=== PATIENT | male | born 1960 | race Caucasian/White ===

== ENCOUNTER 2024-06-17 15:55 | Inpatient (IN) | payer MEDICARE, BC, SELFPAY ==
[2024-06-17 16:08] VITALS: BP 152/86; PULSE 91; RESP 18; TEMP 37.2; O2SAT 96; BMI 26.8
--- NOTE | 2024-06-17 16:19 | EKG_ITS ---
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
--- NOTE | 2024-06-17 16:19 | XR_ITS ---
Examination: CT abdomen with intravenous contrast CT pelvis with intravenous contrast 2-D coronal reconstructions 2-D sagittal reconstructions Date and time of exam:June 17, 2024 1830 hrs. Indications: Right upper abdominal pain epigastric pain beginning 8 days ago Comparison: May 09, 2013. CTDI: vol (mGy) 8.28 DLP: (mGycm) 506 Technique: Multiple axial sections of the abdomen and pelvis have been obtained. 64 slice high-resolution scanner used. 3 mm axial sections have been obtained, post intravenous injection 60 cc [id number] 2-D sagittal, coronal reconstructions obtained. Low dose protocols were performed. One or more of the following dose reduction techniques were used; automated exposure control, adjustment of the mA and/or KV according to patient size, use of iterative reconstruction technique. Findings: Subsegmental atelectasis in the lower lung zones No focal liver lesion Acute acalculous cholecystitis No splenic pancreatic or adrenal mass No renal or ureteral calculi, no hydronephrosis Appendix not visualized No bowel obstruction Colonic diverticulosis no diverticulitis Contracted urinary bladder Transverse prostate dimension 4.9 cm Impression: Acute acalculous cholecystitis No common bile duct stones noted
--- NOTE | 2024-06-17 16:20 | PD.EDRME ---
Rapid Medical Screening Exam RME Arrival date/time: 06/17/24 15:55 64-year-old male presents emergency department complaint of abdominal pain ongoing since March intermittently. Patient has been seen by Dr. Vuong GI specialist as well as Dr. Shafer Chief Complaint: Flu Like Symptoms Time Seen by Provider: 06/17/24 16:03 Vital signs: Vital Signs Temperature 98.9 F 06/17/24 16:08 Pulse Rate 91 06/17/24 16:08 Respiratory Rate 18 06/17/24 16:08 Blood Pressure 152/86 H 06/17/24 16:08 Pulse Oximetry (%) 96 06/17/24 16:08 Oxygen Delivery Method Room Air 06/17/24 16:08
[2024-06-17 16:51] LABS: Basophils % (Auto) 0 % (0-2.5); Eosinophils % (Auto) 0 % (0-10); Hematocrit 40.1 % (41.0-53.0); Hemoglobin 14.2 g/dL (13.5-16.0); Immature Granulocytes % (Auto) 1 % (0-0); Immature Granulocytes Auto 0.07 Thou/mm3 (0.00-0.00); Lymphocytes # (Auto) 0.4 Thou/mm3 (1.0-4.8); Lymphocytes % (Auto) 3 % (10-50); Mean Corpuscular HGB Conc 35.4 g/dl (31.0-37.0); Mean Corpuscular Hemoglobin 31.5 pg (25.0-35.0); Mean Corpuscular Volume 89 fL (80-100); Monocytes # (Auto) 1.5 Thou/mm3 (0.0-0.8); Monocytes % (Auto) 11 % (0-12); Neutrophils # (Auto) 11.8 Thou/mm3 (1.8-7.7); Neutrophils % (Auto) 86 % (37-80); Nucleated Red Blood Cell % 0 /100 WBC (0); Platelet Count 168 Thou/mm3 (140-440); Red Blood Count 4.51 Miln/mm3 (4.50-5.90); White Blood Count 13.7 Thou/mm3 (3.8-10.6)
[2024-06-17 16:54] LABS: Collection Type, Urine Clean Catch
[2024-06-17 17:03] LABS: Amorphous Crystals,Urine Present (Absent); Bilirubin,Urine 2+ (Negative); Blood,Urine Trace (Negative); Color,Urine Drk-Yellow (Lt Yel-Yel); Culture Indicated,Urine Not Indicated; Glucose, Urine Negative (Negative); Ketones,Urine Negative (Negative); Leukocyte Esterase,Urine Negative (Negative); Nitrite,Urine Negative (Negative); PH,Urine 6.5 (5.0-7.0); Protein,Urine 1+ (Neg - Trace); RBC,Urine 2 /hpf (0-3); Specific Gravity,Urine 1.014 (1.001-1.035); Squamous Epithelial Cell,Urine < 1 /hpf (0-5); WBC,Urine 3 /hpf (0-5)
[2024-06-17 17:12] LABS: Alanine Aminotransferase 59 U/L (10-49); Albumin, Serum 4.5 gm/dL (3.4-4.8); Albumin/Globulin Ratio 1.7 (1.2-2.2); Alkaline Phosphatase 280 U/L (46-116); Anion Gap 10 (7-16); Aspartate Amino Transferase 46 U/L (0-34); BUN/Creatinine Ratio 8 Ratio (12-20); Bilirubin,Total 5.7 mg/dL (0.3-1.2); Blood Urea Nitrogen 8 mg/dL (9-23); Calcium 9.9 mg/dL (8.3-10.6); Calcium (Corrected) 9.9 mg/dL (8.5-10.1); Carbon Dioxide 27.4 mMol/L (20.0-31.0); Chloride 92 mMol/L (98-107); Estimated Creatinine Clearance 70.3 mL/min (>60); Globulin 2.7 gm/dL (2.3-3.5); Glucose 121 mg/dL (74-106); Lipase 27 U/L (12-53); Osmolality,Calculated 258 (275-295); Sodium 129 mMol/L (136-145); Total Protein 7.2 gm/dL (5.7-8.2); Troponin I < 0.020 ng/mL (0.0-0.045); eGFR > 60 See Note
[2024-06-17 17:17] LABS: Clarity,Urine Hazy (Clear/Hazy)
--- NOTE | 2024-06-17 17:25 | XR_ITS ---
Examination: Abdomen sonogram, Limited Date and time of exam: June 17, 2024 at 1809 hrs. Indications: Abdominal pain beginning 6 days ago Technique: Real-time ryan scale transabdominal sonographic images of the upper abdomen obtained. Findings: Gallbladder sludge No gallstones Gallbladder wall is thickened up to 0.48 cm with edema Common bile duct 0.3 cm Pancreatic head 2.1 cm Liver 16 cm fatty infiltration lobular contour no focal liver lesions Normal hepatopedal portal venous flow Patent IVC Impression: Acute calculus cholecystitis, consider HIDA scan or MRCP follow-up
[2024-06-17 17:54] VITALS: BP 155/92; PULSE 92; RESP 16; TEMP 36.9; O2SAT 96
--- NOTE | 2024-06-17 17:57 | PD.EDADULT ---
ED General RME/HPI General Chief complaint: Flu Like Symptoms Stated complaint: NIGHT SWEATS, CHILLS, FEVER Time Seen by Provider: 06/17/24 16:03 Arrival date/time: 06/17/24 15:55 CC: Epigastric right upper quadrant abdominal pain with progressive increase in severity over the past 8 days, now also with a headache for the past 4 days, patient states currently the pain is a 9 on a 10 scale in the epigastrium and right upper quadrant. Abdomen is mildly distended as baseline. Patient denies nausea or vomiting or diarrhea. Patient has a history of esophageal stricture which was dilated by Dr. Vuong. Patient is awake alert oriented in mild discomfort but not in any acute distress. RME / HPI RME / HPI narrative: 06/17/24 15:55 64-year-old male presents emergency department complaint of abdominal pain ongoing since March intermittently. Patient has been seen by Dr. Vuong GI specialist as well as Dr. Shafer Related Data Home Medications ?Medication ?Instructions ?Recorded ?Confirmed ezetimibe 10 mg tablet 10 mg PO QDAY 05/16/24 06/18/24 montelukast 10 mg tablet 10 mg PO QDAY 05/16/24 06/18/24 pantoprazole 40 mg tablet,delayed 40 mg PO QDAY 05/16/24 06/18/24 release Allergies Allergy/AdvReac Type Severity Reaction Status Date / Time Heparin Analogues Allergy Severe Anaphylaxis Verified 05/19/24 09:05 simvastatin Allergy Severe DEPRESSION Verified 05/19/24 09:05 Sulfa (Sulfonamide Allergy Severe Hives Verified 05/19/24 09:05 Antibiotics) clindamycin Allergy Mild Rash Verified 05/19/24 09:05 tamsulosin Allergy Mild Abdominal Verified 05/19/24 09:05 Pain Review of Systems Review of Systems Narrative Review of Systems: GEN: No fever, no chills, no weight loss EYES: No discharge, no visual changes, no pain HEENT: No ear pain, no congestion, no sore throat PULM: No shortness of breath, no cough, no congestion CV: No chest pain, no dyspnea on exertion, no palpitations GI: + nausea, no vomiting, no diarrhea, + pain, no constipation : No frequency, no urgency, no dysuria MUSC/SKEL: No joint pain, no back pain SKIN: No rash PSYCH: No hallucinations, no depression HEME/LYMPH: No easy bleeding or bruising tendencies NEURO: No weakness, no headache Past Medical History Past Medical History NEUROLOGIC: Negative Neurological Disorders or Seizures CARDIAC: Positive Hypercholesterolemia; Negative Cardiac Disorders or Congestive Heart Failure RESPIRATORY: Negative Chronic Obstructive Pulmonary Disease (COPD) or Asthma GASTROINTESTINAL: Positive Gastrointestinal Disorders (dyphagia, EOE), Ulcer and Gastroesophageal Reflux Disease GENITOURINARY: Positive Genitourinary Disorders and Benign Prostatic Hyperplasia; Negative Renal Disease MUSCULOSKELETAL: Positive Musculoskeletal Disorders, Arthritis and Osteoporosis ENT: Positive Deafness (wears hearing aids) ENDOCRINE: Negative Endocrine Disorders, Diabetes Mellitus Type 1 or Diabetes Mellitus Type 2 HEMATOLOGIC: Negative Blood Disorders or Sickle Cell Disease OTHER HISTORY: Positive Chicken Pox, Measles and Mumps; Negative Autoimmune Disease, Falls, Blood Transfusions, Anesthesia Reactions or Cancer Family History FAMILY HISTORY: Positive Family Cardiac Disorders (mother-high cholesterol, HTN) and Family Cancer (father-lung CA); Negative Family Psychiatric Problems, Family Respiratory Disorders, Family Gastrointestinal Problems, Family Surgery or Family Anesthesia Reaction Surgical History SURGICAL: Positive Oral Surgery, Bowel Surgery (hemorrhoidectomy) and Transurethral Resection Social History SMOKING STATUS: Never smoker ED Exam Narrative Physical exam: [General: In mild discomfort but not in any acute distress Head normocephalic HEENT: Within acceptable limits Neck is supple nontender Chest equal chest rise nontender to palpation Respiratory: Clear to auscultation no wheezes crackles or rubs CV: Rate rhythm is regular no murmurs rubs or clicks Abdomen is distended secondary to body habitus, epigastric and right upper quadrant tenderness with minimal palpation, no lower quadrant or left upper quadrant pain. Reflexive guarding but no rebound tenderness. Back: No CVA tenderness no spinous process tenderness from cervical spine thoracic and lumbar spine Skin: Intact no petechiae rash induration ulceration or crepitus Extremities: Moving all extremity against resistance cap refill less than 2 seconds neurosensory intact Neuro: Awake alert oriented x3 Glascow coma 15 no focal deficits] Course Quality Measures none Orders Category Date Time Status Admit to Inpatient Status Routine Admission 06/18/24 10:54 Active Patient Condition Routine Admission 06/18/24 10:54 Ordered Bedside COVID-19 Antigen Test NOW Care 06/17/24 16:[address] Screening NOW Care 06/17/24 16:20 Active EKG (ED ONLY) *Do not use* NOW Care 06/17/24 16:19 Completed Insert IV NOW Care 06/17/24 16:19 Active MRI Screening NOW Care 06/17/24 19:21 Active NPO NOW Care 06/17/24 18:01 Active Notify provider NEEDED Care 06/18/24 10:54 Active Consult to Gastroenterology Stat Cons 06/18/24 09:43 Ordered Consult to General Surgery Stat Cons 06/18/24 09:43 Ordered Diet NPO (NOW) Diet 06/17/24 18:[address] abdomen pelvis w con Stat Exams 06/17/24 16:19 Completed EKG (ED Only) Stat Exams 06/17/24 16:19 Draft MR MRCP Stat Exams 06/18/24 Completed US gall bladder Stat Exams 06/17/24 17:25 Completed Blood Culture (Lab) Stat Lab 06/18/24 11:01 Ordered CBC AM DRAW Lab 06/19/24 05:00 Ordered CBC AM DRAW Lab 06/20/24 05:00 Ordered CBC AM DRAW Lab 06/21/24 05:00 Ordered CBC Stat Lab 06/17/24 16:33 Completed Comprehensive Metabolic Panel AM DRAW Lab 06/19/24 05:00 Ordered Comprehensive Metabolic Panel AM DRAW Lab 06/20/24 05:00 Ordered Comprehensive Metabolic Panel AM DRAW Lab 06/21/24 05:00 Ordered Comprehensive Metabolic Panel Stat Lab 06/17/24 16:33 Completed Lipase Stat Lab 06/17/24 16:33 Completed Lipid Panel Stat Lab 06/17/24 16:33 Completed Magnesium AM DRAW Lab 06/19/24 05:00 Ordered Magnesium AM DRAW Lab 06/20/24 05:00 Ordered Magnesium AM DRAW Lab 06/21/24 05:00 Ordered Troponin I Stat Lab 06/17/24 16:33 Completed UA, C/S IF [Urinalysis, C/S if Indicated] Stat Lab 06/17/24 16:47 Completed Acetaminophen Tab [Tylenol ES Tab] Med 06/18/24 00:20 Discontinued 1,000 mg PO X1 ONE Morphine Inj Med 06/18/24 10:00 Discontinued 4 mg IV X1 ONE Morphine Inj Med 06/17/24 18:15 Discontinued 4 mg IVP X1 ONE Morphine Inj Med 06/18/24 00:30 Discontinued 4 mg IVP X1 ONE Ondansetron Inj [Zofran Inj] Med 06/18/24 10:54 Active 4 mg IV Q6H PRN Ondansetron Inj [Zofran Inj] Med 06/17/24 17:54 Discontinued 4 mg IV X1 ONE Ondansetron Inj [Zofran Inj] Med 06/18/24 09:43 Discontinued 4 mg IV X1 ONE Piper/Tazo 3.375 gm [Zosyn] Med 06/18/24 09:43 Discontinued 3.375 gm in 50 ml IV X1 Piper/Tazo Inj [Zosyn Inj] 3.375 gm Med 06/17/24 19:13 Discontinued Sodium Chloride 0.9% (P) [Ns 0.9% (P)] 50 ml IV X1 Sodium Chloride 0.9% 1000 ml [Ns] 1,000 ml Med 06/17/24 19:21 Active IV 100 mls/hr Sodium Chloride 0.9% 1000 ml [Ns] 1,000 ml Med 06/17/24 17:54 Discontinued IV 999 mls/hr Sodium Chloride 0.9% 1000 ml [Ns] 1,000 ml Med 06/18/24 09:44 Discontinued IV 999 mls/hr cefTRIAXone/D5w 1gm IV premix [Rocephin/D5w 1gm IV Med 06/18/24 10:56 Active premix] 50 ml IV QDAY Code Status Routine Oth 06/18/24 10:54 Ordered Vital Signs Vital signs: Vital Signs Temperature 98.9 F 06/17/24 16:08 Pulse Rate 91 06/17/24 16:08 Respiratory Rate 18 06/17/24 16:08 Blood Pressure 152/86 H 06/17/24 16:08 Pulse Oximetry (%) 96 06/17/24 16:08 Oxygen Delivery Method Room Air 06/17/24 16:08 [facility] Patient data External records reviewed:: [facility] previous records Clinical information provided by:: patient Social determinants that could affect healthcare access:: none Patient has the following chronic illnesses:: None How is presenting disease/condition affected by chronic disease/condition?: uneffected by Evaluation data The following diagnostics were reviewed and interpreted by me:: lab results and radiology exam(s) Lab and/or radiology exams considered but not ordered:: CBC shows leukocytosis of 13.7 no anemia thrombocytopenia CMP is shows the patient is hyponatremia at 129 potassium at 4.0 chloride of 92 CO2 of 27.4 BUN of 8 creatinine of 1.0 glucose of 121 T. bili of 5.7 AST of 46 ALT of 59 alk phos of 280 lipase of 27 Troponin is less than 0.020. Interpretation Summary: Patient's case clinical findings and laboratory findings and imaging discussed with Dr. Vuong wants the patient held in the ER [facility], for MRCP in the morning and then he will try and contact her Dr. Shafer regarding an ERCP in the morning. Medications Medications considered but not ordered:: None Medication administrations:: Medication Administration History Sodium Chloride (Ns) 1,000 mls @ 100 mls/hr IV .Q10H PROSPER Stop: 07/17/24 19:20 Last Infusion: 06/18/24 06:11 Dose: Infused Documented By: Admin: 06/17/24 19:33 Dose: 100 mls/hr Documented By: EE Ceftriaxone Sodium/Dextrose (Rocephin/D5w 1gm Iv Premix) 50 mls @ 100 mls/hr IV QDAY [facility] Stop: 06/25/24 10:55 Ondansetron HCl (Ondansetron Inj 2 Mg/Ml Inj 2 Ml) 4 mg IV Q6H PRN; Protocol PRN Reason: NAUSEA OR VOMITING Stop: 07/18/24 10:53 Discontinued Medications Acetaminophen (Acetaminophen 500 Mg Tablet) 1,000 mg PO X1 ONE Stop: 06/18/24 00:21 Last Admin: 06/18/24 00:25 Dose: 1,000 mg Documented By: CVL Sodium Chloride (Ns) 1,000 mls @ 999 mls/hr IV .Q1H1M ONE Stop: 06/17/24 18:54 Last Infusion: 06/17/24 20:01 Dose: Infused Documented By: Admin: 06/17/24 18:28 Dose: 999 mls/hr Documented By: EF Piperacillin Sod/Tazobactam (Sod 3.375 gm/ Sodium Chloride) 50 mls @ 100 mls/hr IV X1 ONE Stop: 06/17/24 19:42 Last Infusion: 06/17/24 20:02 Dose: Infused Documented By: Admin: 06/17/24 19:32 Dose: 100 mls/hr Documented By: EE Piperacillin/Tazobactam/Dextrose (Zosyn) 3.375 gm in 50 mls @ 100 mls/hr IV X1 ONE Stop: 12/04/24 10:12 Last Admin: 06/18/24 10:03 Dose: 100 mls/hr Documented By: AA Sodium Chloride (Ns) 1,000 mls @ 999 mls/hr IV .Q1H1M ONE Stop: 06/18/24 10:44 Last Admin: 06/18/24 10:03 Dose: 999 mls/hr Documented By: AA Morphine Sulfate (Morphine Sulf Inj 10 Mg/Ml Vial) 4 mg IVP X1 ONE Stop: 06/17/24 18:16 Last Admin: 06/17/24 18:28 Dose: 4 mg Documented By: EF Morphine Sulfate (Morphine Sulf Inj 10 Mg/Ml Vial) 4 mg IVP X1 ONE Stop: 06/18/24 00:31 Last Admin: 06/18/24 01:35 Dose: 4 mg Documented By: CVL Morphine Sulfate (Morphine Sulf Inj 10 Mg/Ml Vial) 4 mg IV X1 ONE Stop: 06/18/24 10:01 Last Admin: 06/18/24 10:00 Dose: 4 mg Documented By: CM Ondansetron HCl (Ondansetron Inj 2 Mg/Ml Inj 2 Ml) 4 mg IV X1 ONE; Protocol Stop: 06/17/24 17:55 Last Admin: 06/17/24 18:29 Dose: 4 mg Documented By: EF Ondansetron HCl (Ondansetron Inj 2 Mg/Ml Inj 2 Ml) 4 mg IV X1 ONE; Protocol Stop: 06/18/24 09:44 Last Admin: 06/18/24 09:58 Dose: 4 mg Documented By: CM None Consultations Consultation(s) initiated? (list below): Yes Diagnosis Differential Diagnosis ED Complaint MDM: Cholelithiasis choledocholithiasis ascending cholangitis Most likely diagnosis given after review of the tests above:: Cholelithiasis Admission Indicated Admission indicated?: indicated Explain why admission is indicated or not indicated:: Further medical management Admission Request Was there a request for admission?: No Disposition Plan Disposition Plan: Admit Medical Decision Making Differential Diagnosis Differential Diagnosis: Cholelithiasis choledocholithiasis ascending cholangitis Lab Data 06/17/24 16:33 06/17/24 16:33 Labs: Lab Results 06/17/24 06/17/24 Range/Units 16:33 16:47 WBC 13.7 H (3.8-10.6) Thou/mm3 RBC 4.51 (4.50-5.90) Miln/mm3 Hgb 14.2 (13.5-16.0) g/dL Hct 40.1 L (41.0-53.0) % MCV 89 (80-100) fL MCH 31.5 (25.0-35.0) pg MCHC 35.4 (31.0-37.0) g/dl RDW Std Deviation 38.0 (35.1-43.9) fL Plt Count 168 (140-440) Thou/mm3 Neut % (Auto) 86 H (37-80) % Lymph % (Auto) 3 L (10-50) % Duchesne % (Auto) 11 (0-12) % Eos % (Auto) 0 (0-10) % Baso % (Auto) 0 (0-2.5) % Neut # (Auto) 11.8 H (1.8-7.7) Thou/mm3 Lymph # (Auto) 0.4 L (1.0-4.8) Thou/mm3 Duchesne # (Auto) 1.5 H (0.0-0.8) Thou/mm3 Eos # (Auto) 0.0 (0.0-0.5) Thou/mm3 Baso # (Auto) 0.0 (0.0-0.2) Thou/mm3 Immature Gran # (Auto) 0.07 H (0.00-0.00) Thou/mm3 Absolute Nucleated RBC 0.00 (0.00-0.00) Thou/mm3 Immature Gran % 1 H (0-0) % Nucleated RBC % 0 (0) /100 WBC Sodium 129 L (136-145) mMol/L Potassium 4.0 (3.4-5.1) mMol/L Chloride 92 L (98-107) mMol/L Carbon Dioxide 27.4 (20.0-31.0) mMol/L Anion Gap 10 (7-16) BUN 8 L (9-23) mg/dL Creatinine 1.0 (0.6-1.3) mg/dL Estim Creat Clear Calc 70.3 (>60) mL/min eGFR > 60 (60 - ) See Note BUN/Creatinine Ratio 8 L (12-20) Ratio Glucose 121 H (74-106) mg/dL Calculated Osmolality 258 L (275-295) Calcium 9.9 (8.3-10.6) mg/dL Corrected Calcium 9.9 (8.5-10.1) mg/dL Total Bilirubin 5.7 H (0.3-1.2) mg/dL AST 46 H (0-34) U/L ALT 59 H (10-49) U/L Alkaline Phosphatase 280 H (46-116) U/L Troponin I < 0.020 (0.0-0.045) ng/mL Total Protein 7.2 (5.7-8.2) gm/dL Albumin 4.5 (3.4-4.8) gm/dL Globulin 2.7 (2.3-3.5) gm/dL Albumin/Globulin Ratio 1.7 (1.2-2.2) Triglycerides 96 (30-150) mg/dL Cholesterol 118 L (132-200) mg/dL LDL Cholesterol, Calc 73 (0-130) mg/dL HDL Cholesterol 26 L (40-60) mg/dL Cholesterol/HDL Ratio 4.5 (4.0-6.7) RATIO Lipase 27 (12-53) U/L Ur Collection Type Clean Catch Urine Color Drk-Yellow A (Lt Yel-Yel) Urine Clarity Hazy (Clear/Hazy) Urine pH 6.5 (5.0-7.0) Ur Specific Baker 1.014 (1.001-1.035) Urine Protein 1+ A (Neg - Trace) Urine Glucose (UA) Negative (Negative) Urine Ketones Negative (Negative) Urine Blood Trace (Negative) Urine Nitrite Negative (Negative) Urine Bilirubin 2+ A (Negative) Urine Urobilinogen (Auto) 3.0 (0.0-1.0) mg/dL Ur Leukocyte Esterase Negative (Negative) Urine RBC 2 (0-3) /hpf Urine WBC 3 (0-5) /hpf Ur Squamous Epith Cells < 1 (0-5) /hpf Amorphous Crystals Present A (Absent) Urine Bacteria None (None) Ur Culture Indicated? Not Indicated Discharge Plan Plan Patient Disposition: Other Care w/in Hosp ([facility]) Patient condition on transfer: Stable Prescriptions/Referrals Prescriptions/Med Rec: No Action pantoprazole 40 mg tablet,delayed release (DR/EC) 40 mg PO QDAY Patient Comments: TAKE 1 TABLET BY MOUTH EVERY DAY montelukast 10 mg tablet 10 mg PO QDAY Patient Comments: TAKE 1 TABLET BY MOUTH EVERY DAY IN THE EVENING ezetimibe 10 mg tablet 10 mg PO QDAY Patient Comments: TAKE 1 TABLET BY MOUTH EVERY DAY FOR 90 DAYS Referrals: Martina Shaver MD [Primary Care Provider] - In 1 week Problem List Clinical Impression: Acute cholecystitis Patient/Caregiver Discharge Instructions Education Materials: ED Cholecystitis, Confirmed Print Language: Czech Stand Alone Forms: Rubia Award Info., Patient Portal Info Letter PA/[employer] SUPERVISOR Supervising Physician PA/[employer] SUPERVISOR Supervising Physician: Bayron Arora ENP
[2024-06-17 18:16] LABS: Cardiac Risk Estimate 4.5 RATIO (4.0-6.7); Cholesterol 118 mg/dL (132-200); HDL Cholesterol 26 mg/dL (40-60); LDL Cholesterol,Calculated 73 mg/dL (0-130); Triglycerides 96 mg/dL (30-150)
[2024-06-17] MEDS: SODIUM CHLORIDE 0.9% 1000 ML 1,000 ML 999 ML IV (18:28)
[2024-06-17] MEDS: MORPHINE SULF INJ 10 MG/ML VIAL 4 MG IVP (18:28)
[2024-06-17] MEDS: ONDANSETRON INJ 2 MG/ML INJ 2 ML 4 MG IV (18:29)
--- NOTE | 2024-06-17 18:43 | PC.NURSE ---
patient gone to ct via wheelchair with child care director.
[2024-06-17 19:07] VITALS: BP 143/82; PULSE 93; RESP 18; O2SAT 95
[2024-06-17] MEDS: PIPER/TAZO INJ 3.375 GM in SODIUM CHLORIDE 0.9% (P) 50 ML IV (19:32)
[2024-06-17] MEDS: SODIUM CHLORIDE 0.9% 1000 ML 1,000 ML 100 ML IV (19:33)
[2024-06-17 21:23] VITALS: BP 125/70; PULSE 96; RESP 18; TEMP 36.8; O2SAT 95
[2024-06-17 23:33] VITALS: BP 137/79; PULSE 95; RESP 16; TEMP 38.1; O2SAT 96
[2024-06-18] VITALS (10 sets, daily range): BP systolic 127–150; BP diastolic 75–99; PULSE 80–102; RESP 18–19; TEMP 36.3–38.2; O2SAT 94–97; BMI 26.8
--- NOTE | 2024-06-18 | XR_ITS ---
MRI abdomen, without contrast. MRCP Date and time of exam: June 18, 2024 0640 hrs. Indications: Epigastric pain right upper abdominal pain increasing in severity over the last 8 days Technique: Multiple axial and coronal images of the abdomen have been obtained with the Siemens 1.5T MRI scanner. Images obtained included T1 weighted transverse images, T2-weighted transverse images, T2-weighted transverse images fat-suppressed, T2 weighted haste fat suppressed transverse images, T1 weighted images, in and out of phase images, T2-weighted coronal images, breath hold, T2 weighted haze coronal images as well as T2 weighted coronal thick slab images, MRCP. Findings: No focal liver lesions Gallbladder wall thickening and edema Common bile duct 4 mm no stones No pancreatic edema or pancreatic mass Minimal free fluid in the abdomen No hydronephrosis Aorta normal size Impression: Acute acalculous cholecystitis No common hepatic or common bile duct stones
[2024-06-18] MEDS: ACETAMINOPHEN 500 MG TABLET 1000 MG PO (00:25)
[2024-06-18] MEDS: MORPHINE SULF INJ 10 MG/ML VIAL 4 MG IVP (01:35)
--- NOTE | 2024-06-18 02:18 | PD.EDADDENDU ---
Emergency Room Addendum Addendum Narrative: 2300: Care assumed from Bayron Arora NP. Past medical, surgical, social and family history reviewed. Vitals and home medications reviewed. Results and treatment plan discussed. I will assume the care of the patient at this time and will follow the patient, pending MRCP in the AM. Please refer to the emergency department record for history and examination from initial visit. OBSERVATION NOTE: The patient was placed in ED observation care at 06/17/24 at 2300. The patient was placed in ED observation care because of pending MRCP in the AM. The patients past medical history, social history, and family history were reviewed. The plan of care will include serial examinations. Patient has remained stable here in the ED without any complications. 0600: Care signed out to the next oncoming provider. Past medical, surgical, social and family history reviewed. Vitals and home medications reviewed. Results and treatment plan discussed. They will assume the care of the patient at this time and will follow the patient, pending MRCP.
--- NOTE | 2024-06-18 07:34 | PD.EDADDENDU ---
Emergency Room Addendum Addendum Narrative: 0600: Care assumed from Dr. Kaiser, the previous shift emergency physician. Past medical, surgical, social and family history reviewed. Vitals and home medications reviewed. I will assume the care of the patient at this time, pending MRCP. Please refer to the emergency department record for history and examination from initial visit.? Nursing notes reviewed by me. Vital signs reviewed by me. [facility] medical records reviewed by me. 0936: I spoke with GI Dr. Vuong. Discussed patients PMHx, HPI, ED course, exam findings, labs, and radiology results. 0937: I spoke with surgeon Dr. Sparrow. Discussed patients PMHx, HPI, ED course, exam findings, labs, and radiology results. He agrees to consult. 1000: I spoke with resident Dr. Waldrop working with Dr. Mackay. Discussed patients PMHx, HPI, ED course, exam findings, labs, and radiology results. The hospitalist agree to accept the patient for admission. RADIOLOGY Ordering Physician: Bayron Arora NP Date of Service: 06/18/24 Procedure(s): MR MRCP Accession Number(s): [id number] cc: Bayron Arora NP; Tereso Mckeon MD; Martina Fiore MD~ MRI abdomen, without contrast. MRCP Date and time of exam: June 18, 2024 0640 hrs. Indications: Epigastric pain right upper abdominal pain increasing in severity over the last 8 days Technique: Multiple axial and coronal images of the abdomen have been obtained with the Siemens 1.5T MRI scanner. Images obtained included T1 weighted transverse images, T2-weighted transverse images, T2-weighted transverse images fat-suppressed, T2 weighted haste fat suppressed transverse images, T1 weighted images, in and out of phase images, T2-weighted coronal images, breath hold, T2 weighted haze coronal images as well as T2 weighted coronal thick slab images, MRCP. Findings: No focal liver lesions Gallbladder wall thickening and edema Common bile duct 4 mm no stones No pancreatic edema or pancreatic mass Minimal free fluid in the abdomen No hydronephrosis Aorta normal size Impression: Acute acalculous cholecystitis No common hepatic or common bile duct stones Dictated By:Tereso Mckeon MD Signed By:<Electronically signed by Tereso Mckeon MD in [place]>06/18/24 0752
[2024-06-18] MEDS: ONDANSETRON INJ 2 MG/ML INJ 2 ML 4 MG IV (09:58)
[2024-06-18] MEDS: MORPHINE SULF INJ 10 MG/ML VIAL 4 MG IV (10:00)
[2024-06-18] MEDS: SODIUM CHLORIDE 0.9% 1000 ML 1,000 ML 999 ML IV (10:03)
[2024-06-18] MEDS: PIPER/TAZO 3.375 GM 3.375 GM/50 ML BAG IV (10:03)
[2024-06-18] MEDS: cefTRIAXone/D5w 1gm IV premix 50 ML IV (11:17)
--- NOTE | 2024-06-18 13:45 | ESHP_ITS ---
<Statement entered by Cristopher Waldrop MD - 06/18/24 17:15> This is a 64-year-old male with past medical history of eosinophilic esophagitis and hyperlipidemia. Patient follows up with PCP and soap inspector and soap inspector as outpatient. Patient presented with epigastric pain radiating to upper abdomen constant and worse with eating. He described his pain as stabbing. Pain minimally improved with oxycodone at home. He also had associated yellowish discoloration of eyes. Also endorsed generalized pruritus. Patient was admitted at [facility] in March and cardiac workup was performed by soap inspector which came out to be negative. Patient is admitted for acute acalculous cholecystitis workup and general surgery has been consulted and plans to perform surgery. GI specialist Dr. Vuong has been also consulted for further recommendations. Currently patient is n.p.o., blood cultures were ordered and IV antibiotic therapy was initiated. Pain control will be given as needed. Patient is allergic to heparin therefore SCDs were given for DVT prophylaxis. Hep panel was ordered for elevated transaminases although most likely attributed to use of ezetemibe as well as acalculous cholecystitis. MRCP did not reveal any CBD stones. Patient family is agreeable to the plan. All labs and orders were reviewed. I saw and examined the patient, and I agree with current management stated by Dr Julien MD,[id number]. Plan of care was discussed with the attending physician and resident physician. Disclaimer: Despite multiple revisions, due to the dictation software being used, the document bellow may not be free of grammatical errors including phonetic/typographic errors. However, this does not deter from our commitment to providing health care in the patient's best interest in mind. Dr. Tee MD, PGY 2 Documentation for date of: 06/18/24 HPI History of Present Illness Chief complaint: Epigastric pain and Jaundice History of present illness: HPI: Patient is a 64-year-old male with a past medical history significant for eosinophilic esophagitis and hyperlipidemia. Patient follows up with PCP Dr. Martina Shaver, soap inspector Dr. Ramos and wood window and door craftsman Dr. Vuong. Patient presented to the ED today with a chief complaint of epigastric pain. Patient reported epigastric pain as 10/10, radiating throughout the upper abdomen, constant, worse postprandial and described as stabbing/burning. Patient reports minimal improvement after taking oxycodone at home. He also had associated yellowing of his eyes over the past few days as well as dark-colored urine for the past week. He also endorses generalized pruritus for the same time as well. Also for the past 4 days he has had decreased appetite, however no noticeable weight loss. Patient also states that he developed a nonproductive cough since yesterday. Patient denies any nausea/vomiting, diarrhea, constipation, fever, chills or sick contacts. Also denies any SOB, chest pain/pressure, palpitations, orthopnea, PND or lower extremity swollen. Of note patient had a previous admission to [facility] in March for a similar complaint of chest pain/epigastric pain. Patient had a complete cardiac workup including echocardiogram and stress test which were reported as normal by the patient. He subsequently followed up with soap inspector Dr. Ramos who also did a nuclear stress test which was reported as normal by patient. On April 18 patient underwent upper GI endoscopy, by Dr. Vuong which revealed esophageal strictures/stenosis and was dilated. Since patient's abdominal pain began to worsen and he called Dr. Vuong who sent him for some blood tests which showed his bilirubin was elevated. Today he had worsening of his abdominal pain and again contacted Dr. Vuong who advised he present to the ED. ED course : BP 152/86, pulse 81, RR 18, temp 98.9 F, 96% on room air. Labs were significant for NA 129, OSM 258, Hb 14.2, WBC 13.7, PLT 168, T.bili 5.7, ALP 280, AST 46, ALT 59, cholesterol 118, troponin was negative. EKG showed sinus rhythm, rate 92, no acute ST elevation or depression. Patient was treated with 2L IVF NS bolus, morphine 4 Mg IV x 1, ondansetron 4 Mg IV x 1 and Zosyn 3.375 g x 2. Patient will be admitted for management of acalculous cholecystitis. GI and general surgery were both consulted. Medication list: ?Ezetimibe 10 Mg p.o. daily ? Montelukast 10 Mg p.o. daily ? Pantoprazole 40 Mg p.o. daily Review of Systems Review of Systems Narrative Review of Systems: GENERAL: Denies fever/chills or diaphoresis. HEENT: Denies headaches or visual changes. Denies discharge. Neuro: Denies unusual weakness or difficulty speaking. CARDIO: As above PULM: As abovr GI: As above. URO: Denies buring/itching/pain/urinary changes. MEDICAL LAB TECH INSTRUCTOR: Denies menstrual changes, hot flashes. MSK/EXT/SKIN: Denies joint/skeletal/muschle pain, issues/changes in upper or lower extremities, itchiness, or superficial pain. PSYCH: Cooperative, pleasant mood & affect. The rest of the review of systems is otherwise negative. Past Medical History Past Medical History Comments PMH COMMENT: Past medical history: ?Eosinophilic esophagitis ? Hyperlipidemia ? Acalculous cholecystitis ? BPH ? Appendicitis Past surgical history: 1995?right inguinal hernia repair [[facility]] 1999?left shoulder rotator cuff repair [[facility]] 2008?screening colonoscopy and EGD with esophageal dilatation [[facility] by Dr. Ramirez] 2009, 2010/2011/2015/2016?EGD with esophageal dilatation 2011?greenlight laser therapy/photo selective vaporization of the prostate 2012?laparoscopic appendectomy 2013?right shoulder rotator cuff repair and arthroscopy [[place]] 2019?TURP [[place]] 2020?colonoscopy and EGD with dilation [Dr. Vuong] 2021?hemorrhoidectomy [[place]] 2023?left trigger thumb release Allergies: ?Heparin?/anaphylaxis ? Simvastatin?impression ? Sulfa?hives ? Clindamycin?rash ? Tamsulosin?abdominal pain ? 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 Never smoked ETHO use: Socially Illicit drug use: Denies Social History Note: Patient states he exercises 3 times a week and runs approximately 1-5 miles M/W/F. On alternate weeks he does weight training Family History: Mom?familial hyperlipidemia Exam Vital Signs Temp Pulse Resp BP Pulse Ox O2 Del Method 98.7 F 86 19 134/95 H 94 L Room Air 06/18/24 11:46 06/18/24 11:46 06/18/24 11:46 06/18/24 11:46 06/18/24 11:46 06/18/24 11:46 Narrative Exam Constitutional Alert, oriented x 3 and comfortable. Elderly male, Icteric HEENT Vision grossly intact. Patent nares. Trachea midline Respiratory Chest normal on inspection and clear auscultation bilaterally Cardiovascular S1 and S2 audible, RRR. No murmurs, carotid bruit, occasional skipped beats. JVD not assessed Abdominal Distended and tender to palpation right upper quadrant and epigastrium. BS + Genitourinary No bladder tenderness, no flank pain. Normal to palpation Musculoskeletal Extremities tone within normal limits. Trace LE edema. Neurological CN II - XII grossly intact. Extremity motor and sensation grossly intact. Skin Warm, dry and intact. No apparent lesions. Psychiatric Patient has good affect, is cooperative Results: Labs 06/17/24 16:33 06/17/24 16:33 Labs: Short CBC 06/17/24 Range/Units 16:33 WBC 13.7 H (3.8-10.6) Thou/mm3 Hgb 14.2 (13.5-16.0) g/dL Hct 40.1 L (41.0-53.0) % Plt Count 168 (140-440) Thou/mm3 BMP 06/17/24 16:33 Sodium 129 L Potassium 4.0 Chloride 92 L Carbon Dioxide 27.4 BUN 8 L Creatinine 1.0 Glucose 121 H Calcium 9.9 Cardiac Enzymes 06/17/24 Range/Units 16:33 Troponin I < 0.020 (0.0-0.045) ng/mL Liver Function 06/17/24 Range/Units 16:33 Total Bilirubin 5.7 H (0.3-1.2) mg/dL AST 46 H (0-34) U/L ALT 59 H (10-49) U/L Alkaline Phosphatase 280 H (46-116) U/L Albumin 4.5 (3.4-4.8) gm/dL Urine 06/17/24 Range/Units 16:47 Urine Color Drk-Yellow A (Lt Yel-Yel) Urine Clarity Hazy (Clear/Hazy) Urine pH 6.5 (5.0-7.0) Ur Specific [place] 1.014 (1.001-1.035) Urine Protein 1+ A (Neg - Trace) Urine Glucose (UA) Negative (Negative) Quality Measures Quality Measures none Advance care planning discussed with:: patient Medications Home Medications and Allergies Home Medications ?Medication ?Instructions ?Recorded ?Confirmed ?Type ezetimibe 10 mg tablet 10 mg PO QDAY 05/16/24 06/18/24 History montelukast 10 mg tablet 10 mg PO QDAY 05/16/24 06/18/24 History pantoprazole 40 mg tablet,delayed 40 mg PO QDAY 05/16/24 06/18/24 History release Allergies Allergy/AdvReac Type Severity Reaction Status Date / Time Heparin Analogues Allergy Severe Anaphylaxis Verified 05/19/24 09:05 simvastatin Allergy Severe DEPRESSION Verified 05/19/24 09:05 Sulfa (Sulfonamide Allergy Severe Hives Verified 05/19/24 09:05 Antibiotics) clindamycin Allergy Mild Rash Verified 05/19/24 09:05 tamsulosin Allergy Mild Abdominal Verified 05/19/24 09:05 Pain Visit Medications Sodium Chloride (Ns) 1,000 mls @ 100 mls/hr IV .Q10H PROSPER Stop: 07/17/24 19:20 Last Admin: 06/18/24 12:34 Dose: Not Given Ceftriaxone Sodium/Dextrose (Rocephin/D5w 1gm Iv Premix) 50 mls @ 100 mls/hr IV QDAY PROSPER Stop: 06/25/24 10:55 Last Infusion: 06/18/24 12:32 Dose: Infused Ondansetron HCl (Ondansetron Inj 2 Mg/Ml Inj 2 Ml) 4 mg IV Q6H PRN; Protocol PRN Reason: NAUSEA OR VOMITING Stop: 07/18/24 10:53 Discontinued Medications Acetaminophen (Acetaminophen 500 Mg Tablet) 1,000 mg PO X1 ONE Stop: 06/18/24 00:21 Last Admin: 06/18/24 00:25 Dose: 1,000 mg Sodium Chloride (Ns) 1,000 mls @ 999 mls/hr IV .Q1H1M ONE Stop: 06/17/24 18:54 Last Infusion: 06/17/24 20:01 Dose: Infused Piperacillin Sod/Tazobactam (Sod 3.375 gm/ Sodium Chloride) 50 mls @ 100 mls/hr IV X1 ONE Stop: 06/17/24 19:42 Last Infusion: 06/17/24 20:02 Dose: Infused Piperacillin/Tazobactam/Dextrose (Zosyn) 3.375 gm in 50 mls @ 100 mls/hr IV X1 ONE Stop: 06/18/24 10:12 Last Infusion: 06/18/24 11:12 Dose: Infused Sodium Chloride (Ns) 1,000 mls @ 999 mls/hr IV .Q1H1M ONE Stop: 06/18/24 10:44 Last Infusion: 06/18/24 11:13 Dose: Infused Morphine Sulfate (Morphine Sulf Inj 10 Mg/Ml Vial) 4 mg IVP X1 ONE Stop: 06/17/24 18:16 Last Admin: 06/17/24 18:28 Dose: 4 mg Morphine Sulfate (Morphine Sulf Inj 10 Mg/Ml Vial) 4 mg IVP X1 ONE Stop: 06/18/24 00:31 Last Admin: 06/18/24 01:35 Dose: 4 mg Morphine Sulfate (Morphine Sulf Inj 10 Mg/Ml Vial) 4 mg IV X1 ONE Stop: 06/18/24 10:01 Last Admin: 06/18/24 10:00 Dose: 4 mg Ondansetron HCl (Ondansetron Inj 2 Mg/Ml Inj 2 Ml) 4 mg IV X1 ONE; Protocol Stop: 06/17/24 17:55 Last Admin: 06/17/24 18:29 Dose: 4 mg Ondansetron HCl (Ondansetron Inj 2 Mg/Ml Inj 2 Ml) 4 mg IV X1 ONE; Protocol Stop: 06/18/24 09:44 Last Admin: 06/18/24 09:58 Dose: 4 mg Assessment & Plan Plan Patient is a 64-year-old male with a past medical history significant for eosinophilic esophagitis and hyperlipidemia. Patient follows up with PCP Dr. Martina Shaver, soap inspector Dr. Ramos and wood window and door craftsman Dr. Vuong. Patient presented to the ED today with a chief complaint of epigastric pain.Patient will be admitted for management of acalculous cholecystitis. GI and general surgery were both consulted. 1. Abdominal pain 2. Jaundice 3. Pruritus Secondary to 4. Acute acalculous cholecystitis 5. Metabolic Dysfunction Associated Steatohepatitis Patient presented with epigastric abdominal pain 10/10 which initially started 2 months ago and was more or less constant throughout the entire period with progressive worsening of symptoms. Also had associated scleral icterus and generalized pruritus which recently developed. On exam patient has scleral icterus, epigastric and right upper quadrant pain to palpation. In the ED ? Patient was treated with 2L IVF NS bolus, morphine 4 Mg IV x 1, ondansetron 4 Mg IV x 1 and Zosyn 3.375 g x 2. His labs were significant for T.bili 5.7 and ALP 280. Triglycerides 96, cholesterol 118, LDL 73 and HDL 26. On imaging gallbladder Gallbladder ultrasound showed a thickened gallbladder wall up to 0.48 cm with edema, liver 16 cm fatty infiltration with lobular contour, Gallbladder sludge. Abdomen/pelvis CT was significant for acute acalculous cholecystitis. MRCP was also significant for acute acalculous cholecystitis, no common hepatic or CBD stones. DDx: Acute acalculous cholecystitis, pancreatitis, acute hepatitis, peptic ulcer disease, appendicitis Imaging confirmed acute acalculous cholecystitis and this is the #1 diagnosis. AST and ALT only mildly elevated so acute hepatitis unlikely. Patient also has history of eosinophilic esophagitis so abdominal pain may also be related to this. Is possible that appendicitis can be a differential, however unlikely as not seen on imaging and no signs of peritonitis currently. Plan: ? Keep n.p.o. ? Hepatitis panel ordered to rule out acute hepatitis ? Coagulation panel ordered ? CBC, CMP ? Blood culture ordered to tailor antibiotic regimen ? Discontinued ezetimibe, Home medication due to derangement of LFTs and increased T. bili. ? Acetaminophen 650 mg p.o. Q4 hourly for mild pain or fever ? Pain control with hydrocodone 5/325 Q4 hourly as needed for moderate pain and morphine 1 Mg IV Q4 hourly as needed for severe pain. ? Started ceftriaxone 1 g IV daily for cholecystitis on [06/18? ? Patient on SCDs as he is allergic to heparin and heparin analogs and there will be possibly scheduled for surgery. ? GI, Dr. Vuong consulted. Appreciate recommendations ? General Surgery, Dr. Sparrow consulted. Appreciate recommendations 5. Hyperbilirubinemia 6. Transaminitis On admission T. bili 5.1. AST 46, AL T59, ALP 280 DDx: Cholecystitis, drug-induced, cirrhosis, acute hepatitis, Ajay's disease, pancreatitis, HIV, parasitic infection, hypoperfusion. ALP significantly elevated at 280 and T. bili at 5.1, will order direct bili to further assess. Etiology most likely secondary to obstructive gallstone which subsequently passed. Plan: ? AST and ALT only mildly elevated therefore acute/autoimmune hepatitis unlikely. Also patient had a negative hepatitis panel from 2019 and is in a monogamous relationship with his and also denies IV drug use. Lipase was 27 and patient also denied any vomiting, pancreatitis also unlikely. Plan: ? Direct bili ordered ? Continue to trend bilirubin ? Hepatitis panel ordered 7. Hyperlipidemia Patient has a family history of hypercholesterolemia and was recently started on ezetimibe. Triglycerides 96, cholesterol 118, LDL 73 and HDL 26. Ezetimibe discontinued currently due to deranged liver enzymes. 8. Eosinophilic esophagitis Patient was first diagnosed in [address] Ramirez after EGD with biopsies. 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 He has had multiple EGDs with dilatation in the past for esophageal stenosis/strictures. 2008?screening colonoscopy and EGD with esophageal dilatation [[facility] by Dr. Ramirez] 2009, 2010/2011/2015/2016?EGD with esophageal dilatation Home medication pantoprazole 40 Mg p.o. daily Plan: ? Resume home medication pantoprazole 40 Mg p.o. daily Attending Provider Attestation/Addendum I have examined the patient, reviewed labs and imaging findings, discussed the case with the resident(s), and reviewed entered orders. I agree with the plan of care as outlined in this note, with these additional summaries/recommendations: Patient is a 64-year-old male with a medical history of hypercholesterolemia, GERD, and allergies presented to [facility] emergency department on 06/17/2024 with chief complaint of abdominal pain. Patient was found to have acute acalculous cholecystitis on MRCP. Gastroenterology and general surgery consulted, recommendations appreciated. Patient is n.p.o., started on maintenance fluids and pain management. As needed Zofran. Start IV Rocephin. Patient was also found to have hyperbilirubinemia with minimally elevated LFTs and ALP. MRCP did not reveal any common bile duct stones. Etiology for hyperbilirubinemia is possibly secondary to medication ezetimibe versus passed stone. Low suspicion for hemolysis as no anemia noted. Patient and updated on the plan and in agreement. Repeat hematology and chemistry panel in AM. Dr. Mackay
--- NOTE | 2024-06-18 14:34 | PC.NURSE ---
Report given to Orlin rn, patient will transfer to room 359.
--- NOTE | 2024-06-18 14:42 | PC.CC ---
Patient is a 64 year-old male BIBA-Spouse for night sweats, chills, and fever. Roya PEARL made [id number] contact with patient. ASW introduced self, role, and reason for visit. Patient appeared alert and oriented to self, location, and situation. At bedside was patient's , Mayra Pérez whom patient provided consent to remain in the room during initial assessment. Patient was pleasant and engaged in initial assessment. Patient confirmed information on demographics and reports he and his live at home. Patient reports [facility] as their adult children live in [place]. Prior to being admitted to the hospital the patient was ambulate independently and complete his own ADLs without the use of any DME. Patient primary care provider is Martina Shaver and uses [facility] for prescription medication. Patient's next of kin is his , Mayra. Upon discharge the patient plans on returning home. director of career services to follow up with any discharge needs.
[2024-06-18] MEDS: SODIUM CHLORIDE 0.9% 1000 ML 1,000 ML 100 ML IV (14:46)
--- NOTE | 2024-06-18 16:24 | ESCONSULT_ITS ---
HPI Data of Consult Requesting Physician: Wei Mackay MD Admitting Provider: Wei Mackay MD Attending Provider: Wei Mackay MD Primary Care Provider: Martina Shaver MD Consult Narrative History of present illness: 64-year-old male with past medical history of eosinophilic esophagitis, esophageal stricture status post dilation on May 19, 2024, hyperlipidemia, GERD and BPH was admitted to the hospital on 06/18/2024 due to acute acalculous cholecystitis. In ED patient came in with right upper quadrant pain and epigastric pain rating a 9 out of 10 for the last 8 days. Initially patient was hypertensive and afebrile. Initial labs showed leukocytosis (WBC 13.7), Hgb 14.2, sodium 129, potassium 4, chloride 92, BUN 8, creatinine 1, T bilirubin 5.7, AST 46, ALT 59, alkaline phosphatase 280, lipase of 27, and UA was positive for bilirubin. Abdomen/pelvis CT showed acute acalculous cholecystitis, gallbladder ultrasound showed acute acalculous cholecystitis, and MRCP showed acute acalculous cholecystitis without any stones in the CBD or hepatic duct. UA was positive for bilirubin. During my assessment patient stated that he had been having epigastric pain since late March, in which he went to [facility] due to what seemed like chest pain, but after a complete cardiac workup including echocardiogram and stress test everything was found to be within normal limits. Afterwards he follow-up outpatient in my clinic where he had a stress test done and everything came back within normal limits. This time patient came in to the hospital because his pain became intolerable antibiotic radiated to his right upper quadrant and became diffuse throughout his all abdomen throughout this past 8 days. He states that his pain is not associated with eating, nausea, or vomiting. He did endorse some generalized itching as well as yellowing of his eyes and dark-colored urine in the past few days. Given this then patient decided to come to the hospital. Patient stated that ankle where they did not do a workup for any gallbladder issues and that they just told him that he could take ibuprofen, which she did and did not improve his symptoms, but given his history of esophagitis he should stay away from NSAIDs. Today patient still complains of diffuse abdominal pain with positive Leblanc sign. He states he has not had any cardiac complaints such as chest pain, dizziness, shortness of breath, orthopnea, palpitations, skipped beats, or syncopal episodes. PMH: eosinophilic esophagitis, esophageal stricture status post dilation on May 19, 2024, hyperlipidemia, GERD and BPH Surgical Hx: Hernia repair, EGD, prostate surgery, hemorrhoidectomy, appendectomy Social Hx: Denies any drugs or smoking, admits alcohol socially FMH: Father had a pacemaker placed at 75 years old and possibly had an ID, mother had dementia and diabetes, brother has health issues due to a crushing trauma accident. 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 cc:: cc: Wei Mackay MD Review of Systems Review of Systems Narrative Review of Systems: Constitutional: Denies sweats, Denies weight loss/gain, Denies fever, Denies chills. HEENT: Denies hearing loss, Denies ear pain, Denies postnasal drip, Denies double vision, Denies blurry vision. Respiratory: Denies shortness of breath, Denies cough, Denies wheezing. Cardiovascular: Denies chest pain, Denies palpitations, Denies sudden loss of consciousness. GI: Denies blood in stool, Denies constipation, Admits abdominal pain, Denies difficulty swallowing, Denies nausea or vomit. : Denies urinary incontinence, Denies pain while urinating, Denies increased urinary frequency. MSK: Denies joint pain, Denies joint swelling, Denies numbness. Skin: Denies rash, Admits itching, Denies easy bruising. Neuro: Denies headaches, Denies dizziness, Denies seizures. Past Medical History Past Medical History Comments PMH COMMENT: PMH: eosinophilic esophagitis, esophageal stricture status post dilation on May 19, 2024, hyperlipidemia, GERD and BPH Surgical Hx: Hernia repair, EGD, prostate surgery, hemorrhoidectomy, appendectomy Social Hx: Denies any drugs or smoking, admits alcohol socially FMH: Father had a pacemaker placed at 75 years old and possibly had an ID, mother had dementia and diabetes, brother has health issues due to a crushing trauma accident. 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 Exam Vital Signs Temp Pulse Resp BP Pulse Ox O2 Del Method 98.7 F 83 19 150/99 H 94 L Room Air 06/18/24 11:46 06/18/24 14:06 06/18/24 14:06 06/18/24 14:06 06/18/24 14:06 06/18/24 14:06 Narrative Exam General: A/O x3, no acute distress Eyes: PERRL, EOMI. icteric, vision grossly intact. Ears: No ear pain, no ear discharge, Hearing grossly intact. Nose: No nasal discharge. Mouth/Throat: Moist mucous membranes, no redness, no lesions. Neck: Neck supple, non-tender, no cervical lymphadenopathy. Lungs: Clear DONNA to auscultation and percussion, No accessory muscle use. Cardio: Normal S1/S2, regular rhythm, no murmurs, no JVD or carotid bruits. Abdomen: Soft, possitive leblanc's sign, no palpable masses, peristalsis present, no guarding or rebound. Extremities: Symmetrical, no significant deformities, no peripheral edema , non-tender, peripheral pulses presents. Skin: No rashes, no lesions, warm to touch, mildly jaundice. Neuro: No focal neurological deficits. motor and sensory intact Psych: Cooperative, appropriate mood and effect. Results Labs 06/17/24 16:33 06/17/24 16:33 Labs: Short CBC 06/17/24 Range/Units 16:33 WBC 13.7 H (3.8-10.6) Thou/mm3 Hgb 14.2 (13.5-16.0) g/dL Hct 40.1 L (41.0-53.0) % Plt Count 168 (140-440) Thou/mm3 BMP 06/17/24 16:33 Sodium 129 L Potassium 4.0 Chloride 92 L Carbon Dioxide 27.4 BUN 8 L Creatinine 1.0 Glucose 121 H Calcium 9.9 Cardiac Enzymes 06/17/24 Range/Units 16:33 Troponin I < 0.020 (0.0-0.045) ng/mL Liver Function 06/17/24 Range/Units 16:33 Total Bilirubin 5.7 H (0.3-1.2) mg/dL AST 46 H (0-34) U/L ALT 59 H (10-49) U/L Alkaline Phosphatase 280 H (46-116) U/L Albumin 4.5 (3.4-4.8) gm/dL Urine 06/17/24 Range/Units 16:47 Urine Color Drk-Yellow A (Lt Yel-Yel) Urine Clarity Hazy (Clear/Hazy) Urine pH 6.5 (5.0-7.0) Ur Specific [place] 1.014 (1.001-1.035) Urine Protein 1+ A (Neg - Trace) Urine Glucose (UA) Negative (Negative) Quality Measures Quality Measures none Advance care planning discussed with:: patient and spouse Medications Home Medications and Allergies Home Medications ?Medication ?Instructions ?Recorded ?Confirmed ?Type ezetimibe 10 mg tablet 10 mg PO QDAY 05/16/24 06/18/24 History montelukast 10 mg tablet 10 mg PO QDAY 05/16/24 06/18/24 History pantoprazole 40 mg tablet,delayed 40 mg PO QDAY 05/16/24 06/18/24 History release Allergies Allergy/AdvReac Type Severity Reaction Status Date / Time Heparin Analogues Allergy Severe Anaphylaxis Verified 05/19/24 09:05 simvastatin Allergy Severe DEPRESSION Verified 05/19/24 09:05 Sulfa (Sulfonamide Allergy Severe Hives Verified 05/19/24 09:05 Antibiotics) clindamycin Allergy Mild Rash Verified 05/19/24 09:05 tamsulosin Allergy Mild Abdominal Verified 05/19/24 09:05 Pain lactase [From Dairy Aid] Allergy Verified 06/18/24 17:54 Visit Medications Acetaminophen (Acetaminophen 325 Mg Tablet) 650 mg PO Q4HR PRN PRN Reason: Pain Scale 1-3 or fever 100.4 Stop: 07/18/24 14:40 Hydrocodone Bitart/Acetaminophen (Hydrocodone/Apap 5/325 Tablet) 1 tab PO Q4HR PRN PRN Reason: PAIN SCALE 1-3 (mild Stop: 06/23/24 14:40 Sodium Chloride (Ns) 1,000 mls @ 100 mls/hr IV .Q10H [facility] Stop: 07/17/24 19:20 Last Admin: 06/18/24 14:46 Dose: 100 mls/hr Ceftriaxone Sodium/Dextrose (Rocephin/D5w 1gm Iv Premix) 50 mls @ 100 mls/hr IV QDAY [facility] Stop: 06/25/24 10:55 Last Infusion: 06/18/24 12:32 Dose: Infused Morphine Sulfate (Morphine Sulf Inj 10 Mg/Ml Vial) 1 mg IV Q4H PRN PRN Reason: PAIN SCALE 7-10 (Severe Stop: 06/23/24 14:40 Ondansetron HCl (Ondansetron Inj 2 Mg/Ml Inj 2 Ml) 4 mg IV Q6H PRN; Protocol PRN Reason: NAUSEA OR VOMITING Stop: 07/18/24 10:53 Pantoprazole Sodium (Pantoprazole Inj 40 Mg Vial) 40 mg IV QDAY [facility] Stop: 07/18/24 14:44 Discontinued Medications Acetaminophen (Acetaminophen 500 Mg Tablet) 1,000 mg PO X1 ONE Stop: 06/18/24 00:21 Last Admin: 06/18/24 00:25 Dose: 1,000 mg Acetaminophen (Acetaminophen 325 Mg Tablet) 650 mg PO Q4HR PRN PRN Reason: PAIN SCALE 1-3 (mild Stop: 07/18/24 14:40 Sodium Chloride (Ns) 1,000 mls @ 999 mls/hr IV .Q1H1M ONE Stop: 06/17/24 18:54 Last Infusion: 06/17/24 20:01 Dose: Infused Piperacillin Sod/Tazobactam (Sod 3.375 gm/ Sodium Chloride) 50 mls @ 100 mls/hr IV X1 ONE Stop: 06/17/24 19:42 Last Infusion: 06/17/24 20:02 Dose: Infused Piperacillin/Tazobactam/Dextrose (Zosyn) 3.375 gm in 50 mls @ 100 mls/hr IV X1 ONE Stop: 06/18/24 10:12 Last Infusion: 06/18/24 11:12 Dose: Infused Sodium Chloride (Ns) 1,000 mls @ 999 mls/hr IV .Q1H1M ONE Stop: 06/18/24 10:44 Last Infusion: 06/18/24 11:13 Dose: Infused Morphine Sulfate (Morphine Sulf Inj 10 Mg/Ml Vial) 4 mg IVP X1 ONE Stop: 06/17/24 18:16 Last Admin: 06/17/24 18:28 Dose: 4 mg Morphine Sulfate (Morphine Sulf Inj 10 Mg/Ml Vial) 4 mg IVP X1 ONE Stop: 06/18/24 00:31 Last Admin: 06/18/24 01:35 Dose: 4 mg Morphine Sulfate (Morphine Sulf Inj 10 Mg/Ml Vial) 4 mg IV X1 ONE Stop: 06/18/24 10:01 Last Admin: 06/18/24 10:00 Dose: 4 mg Ondansetron HCl (Ondansetron Inj 2 Mg/Ml Inj 2 Ml) 4 mg IV X1 ONE; Protocol Stop: 06/17/24 17:55 Last Admin: 06/17/24 18:29 Dose: 4 mg Ondansetron HCl (Ondansetron Inj 2 Mg/Ml Inj 2 Ml) 4 mg IV X1 ONE; Protocol Stop: 06/18/24 09:44 Last Admin: 06/18/24 09:58 Dose: 4 mg Assessment & Plan Plan 64-year-old male with past medical history of eosinophilic esophagitis, esophageal stricture status post dilation on May 19, 2024, hyperlipidemia, GERD and BPH was admitted to the hospital on 06/18/2024 due to acute acalculous cholecystitis. 1. Acute acalculous cholecystitis 2. Transaminitis 3. Pruritus 4. Jaundice 5. Abdominal pain 6. Hyperbilirubinemia ?Patient has been complaining of epigastric pain with radiated to his right upper quadrant and eventually became diffuse in nature for the past 8 days. He stated this has been going on since late March and he was priorly seen at [facility], but he was worked up for atypical chest pain. ?Abdomen/pelvis CT, gallbladder ultrasound, and MRCP all showed acute acalculous cholecystitis with following CBD dilation or stones. ?Patient's T bilirubin has been elevated since admission at 5.7 as well as his liver enzymes AST 46, ALT 59, alkaline phosphatase 280 ?Given the patient had extensive cardiac workup at [facility] in which his echo as well as stress test and nuclear stress test in my office were all normal he will not need further cardiac diagnostic testing at this time. ? Patient's preoperative mortality predictor score was 6.5 points indicating 0.6% risk of perioperative mortality ?Revised cardiac risk index 1 point indicating 6% risk of major cardiac event ?General Surgery consulted and will perform surgery -Continue management as per primary care team 7. Hyperlipidemia ?Patient has been taking ezetimibe 10 mg daily ? Recommend to continue patient's medication during hospital course ?Continue current management as per primary care team 8. Eosinophilic esophagitis 9. Esophageal strictures s/p dilation 10. GERD ?Patient takes pantoprazole 40 mg daily at home ? Recommend to avoid any NSAIDs ?Recommend to continue patient's medication during hospital course ?Continue current management as per primary care team 11. BPH ?Continue management as per primary care team Continue rest of management as per primary team. We are grateful to be able to participate in Mr. Pérez's care. Thank you for the consult Plan of care discussed with attending Photo Intern, Dr Richard Mccall MD PGY-1 Attending Provider Attestation/Addendum I have personally seen and examined the patient separately on the above date of service and discussed the plan of care with the resident. I reviewed the resident Dr. Castellanos consultation progress note and agree with the resident findings and plan in the note above and have also edited the documentation to reflect my findings and plan. Herman Ramos M.D. Interventional Cardiology
[2024-06-18 16:29] LABS: INR 1.1 (0.9-1.3); Partial Thromboplastin Time 26.1 Seconds (22.0-36.0); Prothrombin Time 11.7 Seconds (9.0-12.2)
[2024-06-18 16:31] LABS: Bilirubin,Direct 3.5 mg/dL (0.0-0.3)
[2024-06-18] MEDS: PANTOPRAZOLE INJ 40 MG VIAL IV (16:44)
[2024-06-18] MEDS: MORPHINE SULF INJ 10 MG/ML VIAL IV ×2 (16:44→22:12)
[2024-06-18 17:12] LABS: Hepatitis A Antibody IgM Non Reactive (Non React); Hepatitis B Core Antibody IgM Non Reactive (Non React); Hepatitis B Surface Antigen Non Reactive (Non React); Hepatitis C Antibody Non Reactive (Non React)
--- NOTE | 2024-06-18 18:17 | PD.SURCONS ---
[facility] Consult details Consult date: 06/18/24 Reason for consultation narrative: The patient was seen in consultation because of acute cholecystitis and cholelithiasis History of present illness: History of present illness revealed that the patient was in his usual health until last Sunday when he noticed pain in the epigastric region radiating to the back. The pain persisted and he is not able to eat for the past week. He also was not able to sleep very well. The pain increased yesterday and came to the emergency room. He noticed that he also had jaundice and dark urine. Patient had a sudden episode of epigastric pain in March and then went to [facility] and had a cardiac workup which was negative. Then again patient had another episode of epigastric pain in May 09. That also resolved. Patient is not able to eat anything at the present time because of the pain. Patient is possibly history revealed that he had extensive history. He had a right inguinal hernia repair rotator cuff on the left shoulder and her multiple dilatation of the esophagus for stricture by Dr. Ramirez. He also had a history of benign prostatic hyperplasia for which he underwent surgery by [facility]. Patient also had a laparoscopic appendectomy performed by id in 2012 patient had a colonoscopy in 2016 due to blood in the stools. He has a history of his of eosinophilic esophagitis he had a TURP done in [address] Mauricio he also underwent hemorrhoidectomy by Dr. Hughes and multiple esophageal dilatation by Dr. Vuong Past Medical History Past Medical History NEUROLOGIC: Negative Neurological Disorders or Seizures CARDIAC: Positive Hypercholesterolemia; Negative Cardiac Disorders, Congestive Heart Failure or Hypertension RESPIRATORY: Negative Respiratory Disorders, Chronic Obstructive Pulmonary Disease (COPD) or Asthma GASTROINTESTINAL: Positive Gastrointestinal Disorders, Ulcer and Gastroesophageal Reflux Disease GENITOURINARY: Positive Genitourinary Disorders and Benign Prostatic Hyperplasia; Negative Renal Disease MUSCULOSKELETAL: Positive Musculoskeletal Disorders, Arthritis, Osteoporosis and Fractures ENT: Positive Deafness (since Jul 2011) ENDOCRINE: Negative Endocrine Disorders, Diabetes Mellitus Type 1 or Diabetes Mellitus Type 2 HEMATOLOGIC: Negative Blood Disorders or Sickle Cell Disease OTHER HISTORY: Positive Chicken Pox, Measles and Mumps; Negative Autoimmune Disease, Shingles, Falls, Blood Transfusions, Anesthesia Reactions or Cancer Family History FAMILY HISTORY: Positive Family Cardiac Disorders and Family Cancer; Negative Family Psychiatric Problems, Family Respiratory Disorders, Family Gastrointestinal Problems, Family Surgery or Family Anesthesia Reaction Surgical History SURGICAL: Positive Oral Surgery, Bowel Surgery and Transurethral Resection (X2) Social History SMOKING STATUS: Never smoker Past Medical History Comments PMH COMMENT: PMH: eosinophilic esophagitis, esophageal stricture status post dilation on May 19, 2024, hyperlipidemia, GERD and BPH Surgical Hx: Hernia repair, EGD, prostate surgery, hemorrhoidectomy, appendectomy Social Hx: Denies any drugs or smoking, admits alcohol socially FMH: Father had a pacemaker placed at 75 years old and possibly had an CO, mother had dementia and diabetes, brother has health issues due to a crushing trauma accident. 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 Meds Home Medications and Allergies Home Medications ?Medication ?Instructions ?Recorded ?Confirmed ?Type ezetimibe 10 mg tablet 10 mg PO QDAY 05/16/24 06/18/24 History montelukast 10 mg tablet 10 mg PO QDAY 05/16/24 06/18/24 History pantoprazole 40 mg tablet,delayed 40 mg PO QDAY 05/16/24 06/18/24 History release Allergies Allergy/AdvReac Type Severity Reaction Status Date / Time Heparin Analogues Allergy Severe Anaphylaxis Verified 05/19/24 09:05 simvastatin Allergy Severe DEPRESSION Verified 05/19/24 09:05 Sulfa (Sulfonamide Allergy Severe Hives Verified 05/19/24 09:05 Antibiotics) clindamycin Allergy Mild Rash Verified 05/19/24 09:05 tamsulosin Allergy Mild Abdominal Verified 05/19/24 09:05 Pain lactase [From Dairy Aid] Allergy Verified 06/18/24 17:54 Exam Vital Signs Temp Pulse Resp BP Pulse Ox O2 Del Method 98.1 F 85 19 144/88 H 97 Room Air 06/18/24 16:00 06/18/24 16:00 06/18/24 16:00 06/18/24 16:00 06/18/24 16:00 06/18/24 16:00 Narrative Exam Physical examination revealed a well-built well-nourished white male who is 5 foot 8 inches tall weighing 176 pounds. His vital signs are normal Routine Abdominal Exam Comments: Examination abdomen showed tenderness in the epigastric region as well as in the right upper quadrant with a positive Leblanc sign. Patient had a surgical scar in the right groin from the previous hernia repair Routine Rectal Exam Comments: Deferred Routine Exam Comments: Deferred Results Results: Laboratory Laboratory Narrative: Patient's laboratory workup showed mild leukocytosis but elevation of bilirubin and alkaline phosphatase to 5.7 on 280 respectively Results: Imaging Imaging narrative: Patient had an ultrasound of the gallbladder which was showing inflammation. He also had an MRI because of the elevated bilirubin and it showed no stones but acute cholecystitis without stone Assessment & Plan Additional Assessment Additional comments: Impression: Acute cholecystitis Possible common bile duct stone Eosinophilic esophagitis with stricture Plan Plan: I advised the patient to undergo cholecystectomy laparoscopically. Procedure was explained to him in detail including potential complications like bile duct injury bleeding requiring open surgery etc. Patient seems to have sludge on his ultrasound even though there are no definite stones. Patient also had an ultrasound in March at the hospital which showed a 6 mm stone. At the time there were no inflammation of the gallbladder. I do not know the reason for elevation of the bilirubin and alkaline phosphatase but it is most likely due to common bile duct stone which might of passed. We shall go ahead and arrange for laparoscopic cholecystectomy tomorrow.
--- NOTE | 2024-06-18 19:13 | ESCONSULT_ITS ---
HPI Data of Consult Requesting Physician: Wei Mackay MD Primary Care Provider: Martina Shaver MD Consult Narrative Reason for consult: Severe abdominal pain History of present illness: 64 years old male who was evaluated evaluated my office yesterday with severe abdominal pain and which was going to be lower chest Patient was unable to eat anything I did evaluate the patient in the past and on 05/19/2024 he underwent upper endoscopy with esophageal dilatation with guidewire savory dilators Sami 45 and 54 of the esophageal stricture and he did very well for 3 weeks For the last 1 week patient is very uncomfortable he has been unable to eat has nausea and severe postprandial abdominal pain and chest pain Based on the severity of the symptoms I sent the patient after evaluation in my office to the emergency room And he had the following workup done at my request CT scan of the abdomen pelvis with contrast showed acute acalculous cholecystitis Gallbladder ultrasound showed gallbladder sludge Total bilirubin was 5.7 direct bilirubin 3.5 AST ALT 46 and 59 and alk phos of 280 He also did have leukocytosis with a WBC count of 13.7 Patient was held overnight as he wanted to have an MRCP before making decision for further evaluation and management MRCP done this morning shows no CBD stone CBD slightly 4 mm gallbladder sludge Patient was subsequently admitted with acute cholecystitis And abnormal liver function test most likely due to cholestasis I have also asked the ER physician to get a surgical consultation And I personally discussed the case with the surgical services coordinator Dr. Jeronimo I discussed the case in detail Most likely surgical intervention which would be laparoscopic versus open cholecystectomy tomorrow I have also asked the ER physician to start the patient on broad-spectrum IV cc:: cc: Wei Mackay MD Review of Systems Review of Systems Narrative Review of Systems: Cardiac workup in the past has been all negative Meds Home Medications and Allergies Home Medications ?Medication ?Instructions ?Recorded ?Confirmed ?Type ezetimibe 10 mg tablet 10 mg PO QDAY 05/16/24 06/18/24 History montelukast 10 mg tablet 10 mg PO QDAY 05/16/24 06/18/24 History pantoprazole 40 mg tablet,delayed 40 mg PO QDAY 05/16/24 06/18/24 History release Allergies Allergy/AdvReac Type Severity Reaction Status Date / Time Heparin Analogues Allergy Severe Anaphylaxis Verified 05/19/24 09:05 simvastatin Allergy Severe DEPRESSION Verified 05/19/24 09:05 Sulfa (Sulfonamide Allergy Severe Hives Verified 05/19/24 09:05 Antibiotics) clindamycin Allergy Mild Rash Verified 05/19/24 09:05 tamsulosin Allergy Mild Abdominal Verified 05/19/24 09:05 Pain lactase [From Dairy Aid] Allergy Verified 06/18/24 17:54 Exam Vital Signs Temp Pulse Resp BP Pulse Ox O2 Del Method 98.1 F 85 19 144/88 H 97 Room Air 06/18/24 16:00 06/18/24 16:00 06/18/24 16:00 06/18/24 16:00 06/18/24 16:00 06/18/24 16:00 Constitutional Comments: In considerable abdominal pain Routine Respiratory Exam Comments: Normal to auscultation Routine Abdominal Exam Comments: Midepigastric right upper quadrant tenderness with rebound Results Labs 06/17/24 16:33 06/17/24 16:33 Labs: Liver Function 06/18/24 Range/Units 15:36 Direct Bilirubin 3.5 H (0.0-0.3) mg/dL Assessment and Plan Additional Assessment & Plan Additional Plan: # Acute cholecystitis acalculous versus calculus which is difficult to assess on the imaging studies Ultrasound done in March of this year showed cholelithiasis Patient also has cholestasis leading to abnormal liver function tests No evidence of CBD stone Plan Continue IV antibiotics Case discussed with the surgical services coordinator Laparoscopic versus open cholecystectomy in the morning Complete workup ordered for the remote possibility of chronic active hepatitis Thank you once again for the opportunity to participate in the care of this patient
[2024-06-18 19:54] LABS: Total Iron Binding Capacity 223 mcg/dL (250-425)
[2024-06-18 20:04] LABS: Iron 13 mcg/dL (65-175); Percent Iron Saturation 5 % (20-55); Unsaturated Iron Binding 210 (225-295)
[2024-06-19] VITALS (22 sets, daily range): BP systolic 113–192; BP diastolic 67–108; PULSE 63–87; RESP 16–96; TEMP 36.1–36.9; O2SAT 91–100
[2024-06-19] MEDS: SODIUM CHLORIDE 0.9% 1000 ML 1,000 ML 100 ML IV ×2 (00:51→16:38)
[2024-06-19] MEDS: MORPHINE SULF INJ 10 MG/ML VIAL IV ×3 (02:11→10:38)
[2024-06-19 06:07] LABS: Basophils % (Auto) 1 % (0-2.5); Eosinophils # (Auto) 0.2 Thou/mm3 (0.0-0.5); Eosinophils % (Auto) 3 % (0-10); Hematocrit 32.7 % (41.0-53.0); Hemoglobin 11.5 g/dL (13.5-16.0); Immature Granulocytes % (Auto) 1 % (0-0); Immature Granulocytes Auto 0.04 Thou/mm3 (0.00-0.00); Lymphocytes # (Auto) 0.7 Thou/mm3 (1.0-4.8); Lymphocytes % (Auto) 11 % (10-50); Mean Corpuscular HGB Conc 35.2 g/dl (31.0-37.0); Mean Corpuscular Hemoglobin 31.6 pg (25.0-35.0); Mean Corpuscular Volume 90 fL (80-100); Monocytes % (Auto) 15 % (0-12); Neutrophils # (Auto) 4.5 Thou/mm3 (1.8-7.7); Neutrophils % (Auto) 70 % (37-80); Nucleated Red Blood Cell % 0 /100 WBC (0); Platelet Count 157 Thou/mm3 (140-440); Red Blood Count 3.64 Miln/mm3 (4.50-5.90); White Blood Count 6.4 Thou/mm3 (3.8-10.6)
[2024-06-19 06:47] LABS: Alanine Aminotransferase 64 U/L (10-49); Albumin, Serum 3.5 gm/dL (3.4-4.8); Albumin/Globulin Ratio 1.6 (1.2-2.2); Alkaline Phosphatase 460 U/L (46-116); Anion Gap 10 (7-16); Aspartate Amino Transferase 104 U/L (0-34); BUN/Creatinine Ratio 12 Ratio (12-20); Bilirubin,Direct 2.9 mg/dL (0.0-0.3); Bilirubin,Total 3.8 mg/dL (0.3-1.2); Blood Urea Nitrogen 11 mg/dL (9-23); Calcium 9.2 mg/dL (8.3-10.6); Calcium (Corrected) 9.6 mg/dL (8.5-10.1); Carbon Dioxide 24.3 mMol/L (20.0-31.0); Chloride 102 mMol/L (98-107); Creatinine (Component) 0.9 mg/dL (0.6-1.3); Estimated Creatinine Clearance 78.1 mL/min (>60); Globulin 2.2 gm/dL (2.3-3.5); Glucose 88 mg/dL (74-106); Magnesium 2.1 mg/dL (1.6-2.6); Osmolality,Calculated 270 (275-295); Phosphorous 3.2 mg/dL (2.4-5.1); Potassium 3.4 mMol/L (3.4-5.1); Sodium 136 mMol/L (136-145); Total Protein 5.7 gm/dL (5.7-8.2); eGFR > 60 See Note
[2024-06-19] MEDS: PANTOPRAZOLE INJ 40 MG VIAL IV (08:28)
[2024-06-19] MEDS: cefTRIAXone/D5w 1gm IV premix 50 ML IV (08:28)
--- NOTE | 2024-06-19 09:38 | PD.RESPRO ---
Documentation for date of: 06/19/24 Subjective Subjective Interval history: Patient seen and examined at bedside this morning. Patient had no overnight events. Patient stated that his pain is well-controlled. Patient will undergo cholecystectomy today. Patient has no cardiac complaints at this time Patient's blood pressure has been in the 130s to 140s over 80s overnight. This could be likely due to pain. Recommend to keep potassium and magnesium above 4 and 2 respectively to avoid any arrhythmias. Exam Vital Signs Temp Pulse Resp BP Pulse Ox O2 Del Method 97.2 F 66 16 149/83 H 95 Room Air 06/19/24 07:56 06/19/24 07:56 06/19/24 07:56 06/19/24 07:56 06/19/24 07:56 06/19/24 07:56 Narrative Exam General: A/O x3, no acute distress Eyes: PERRL, EOMI. icteric, vision grossly intact. Ears: No ear pain, no ear discharge, Hearing grossly intact. Nose: No nasal discharge. Mouth/Throat: Moist mucous membranes, no redness, no lesions. Neck: Neck supple, non-tender, no cervical lymphadenopathy. Lungs: Clear DONNA to auscultation and percussion, No accessory muscle use. Cardio: Normal S1/S2, regular rhythm, no murmurs, no JVD or carotid bruits. Abdomen: Soft, tender in RUQ, no palpable masses, peristalsis present, no guarding or rebound. Extremities: Symmetrical, no significant deformities, no peripheral edema , non-tender, peripheral pulses presents. Skin: No rashes, no lesions, warm to touch, mildly jaundice. Neuro: No focal neurological deficits. motor and sensory intact Psych: Cooperative, appropriate mood and effect Objective Labs 06/19/24 04:55 06/19/24 04:55 Labs: Laboratory Results - last 24 hr 06/18/24 06/19/24 15:36 04:55 WBC 6.4 D RBC 3.64 L Hgb 11.5 L D Hct 32.7 L MCV 90 MCH 31.6 MCHC 35.2 RDW Std Deviation 40.0 Plt Count 157 Neut % (Auto) 70 Lymph % (Auto) 11 Ray % (Auto) 15 H Eos % (Auto) 3 Baso % (Auto) 1 Neut # (Auto) 4.5 Lymph # (Auto) 0.7 L Ray # (Auto) 1.0 H Eos # (Auto) 0.2 Baso # (Auto) 0.0 Immature Gran # (Auto) 0.04 H Absolute Nucleated RBC 0.00 Immature Gran % 1 H Nucleated RBC % 0 PT 11.7 INR 1.1 APTT 26.1 Sodium 136 Potassium 3.4 D Chloride 102 Carbon Dioxide 24.3 Anion Gap 10 BUN 11 Creatinine 0.9 Estim Creat Clear Calc 78.1 eGFR > 60 BUN/Creatinine Ratio 12 Glucose 88 Calculated Osmolality 270 L Calcium 9.2 Corrected Calcium 9.6 Phosphorus 3.2 Magnesium 2.1 Iron 13 L TIBC 223 L Iron Saturation 5 L Unsat Iron Binding 210 L Total Bilirubin 3.8 H D Direct Bilirubin 3.5 H 2.9 H AST 104 H ALT 64 H Alkaline Phosphatase 460 H D Total Protein 5.7 Albumin 3.5 D Globulin 2.2 L Albumin/Globulin Ratio 1.6 Hepatitis A IgM Ab Non Reactive Hep Bs Antigen Non Reactive Hep B Core IgM Ab Non Reactive Hepatitis C Antibody Non Reactive Quality Measures Quality Measures none Advance care planning discussed with:: patient Assessment & Plan Assessment Current Active Medications: Generic Name Dose Route Start Last Admin Trade Name Freq PRN Reason Stop Dose Admin Acetaminophen 650 mg 06/19/24 09:22 Acetaminophen 325 Mg Tablet PO 07/18/24 14:40 Q4HR PRN Pain Scale 1-3 or fever >100.4 Sodium Chloride 1,000 mls @ 100 mls/hr 06/17/24 19:21 06/19/24 00:51 Ns IV 07/17/24 19:20 100 mls/hr .Q10H PROSPER Administration Ceftriaxone Sodium/Dextrose 50 mls @ 100 mls/hr 06/18/24 10:56 06/19/24 08:28 Rocephin/D5w 1gm Iv Premix IV 06/25/24 10:55 100 mls/hr QDAY PROSPER Administration Morphine Sulfate 1 mg 06/18/24 14:41 06/19/24 06:06 Morphine Sulf Inj 10 Mg/Ml Vial IV 06/23/24 14:40 1 mg Q4H PRN Administration PAIN SCALE 7-10 (Severe Ondansetron HCl 4 mg 06/18/24 10:54 Ondansetron Inj 2 Mg/Ml Inj 2 Ml IV 07/18/24 10:53 Q6H PRN NAUSEA OR VOMITING Protocol Pantoprazole Sodium 40 mg 12/04/24 14:45 06/19/24 08:28 Pantoprazole Inj 40 Mg Vial IV 07/18/24 14:44 40 mg QDAY PROSPER Administration Plan 64-year-old male with past medical history of eosinophilic esophagitis, esophageal stricture status post dilation on May 19, 2024, hyperlipidemia, GERD and BPH was admitted to the hospital on 06/18/2024 due to acute acalculous cholecystitis. 1. Acute acalculous cholecystitis 2. Transaminitis 3. Pruritus 4. Jaundice 5. Abdominal pain 6. Hyperbilirubinemia ?Patient has been complaining of epigastric pain with radiated to his right upper quadrant and eventually became diffuse in nature for the past 8 days. He stated this has been going on since late March and he was priorly seen at [facility], but he was worked up for atypical chest pain. ?Abdomen/pelvis CT, gallbladder ultrasound, and MRCP all showed acute acalculous cholecystitis with following CBD dilation or stones. ?Patient's T bilirubin has been elevated since admission at 5.7 as well as his liver enzymes AST 46, ALT 59, alkaline phosphatase 280 ?Given the patient had extensive cardiac workup at [facility] in which his echo as well as stress test and nuclear stress test in my office were all normal he will not need further cardiac diagnostic testing at this time. ? Patient's preoperative mortality predictor score was 6.5 points indicating 0.6% risk of perioperative mortality ?Revised cardiac risk index 1 point indicating 6% risk of major cardiac event ?General Surgery consulted and will perform surgery -Continue management as per primary care team 7. Hyperlipidemia ?Patient has been taking ezetimibe 10 mg daily ? Recommend to continue patient's medication during hospital course ?Continue current management as per primary care team 8. Eosinophilic esophagitis 9. Esophageal strictures s/p dilation 10. GERD ?Patient takes pantoprazole 40 mg daily at home ? Recommend to avoid any NSAIDs ?Recommend to continue patient's medication during hospital course ?Continue current management as per primary care team 11. BPH ?Continue management as per primary care team Continue rest of management as per primary team. We are grateful to be able to participate in Mr. Pérez's care. Thank you for the consult Plan of care discussed with attending Electronic Equipment Maint Tech, Dr Richard Mccall MD PGY-1 Attending Provider Attestation/Addendum I reviewed the resident Dr. Castellanos consultation progress note and agree with the resident findings and plan in the note above and have also edited the documentation to reflect my findings and plan. Herman Ramos M.D. Interventional Cardiology
--- NOTE | 2024-06-19 09:51 | ESPR_ITS ---
<Statement entered by Trip Luna MD - 06/20/24 12:27> I have discussed and was present for the essential components of the history, physical examination, diagnosis, and treatment plan with the resident. I agree with the patient's care as documented by the resident and amended herein by me. Trip Luna MD. <Statement entered by Cristopher Waldrop MD - 06/19/24 15:56> Patient was seen and examined at the bedside. Patient is undergoing surgery for acute acalculous cholecystitis today by Dr. Sparrow. GI specialist recommended to follow-up on further evaluation for elevated T. bili and liver enzymes. Will follow-up on alpha 1 antitrypsin, YON workup and ceruloplasmin with antimitochondrial antibodies. Direct bilirubin and total bili was elevated. Potassium was repleted. Will likely follow-up after surgery. All labs and orders were reviewed. I saw and examined the patient, and I agree with current management stated by Dr Julien MD,PGY1. Plan of care was discussed with the attending physician and resident physician. Disclaimer: Despite multiple revisions, due to the dictation software being used, the document bellow may not be free of grammatical errors including phonetic/typographic errors. However, this does not deter from our commitment to providing health care in the patient's best interest in mind. Dr. Tee MD, PGY 2 Documentation for date of: 06/19/24 Subjective Subjective Interval history: Patient was seen and examined at bedside this AM. No acute exents overnight. Patient NPO, adequate urine output and mentation is at baseline. Patient endorses improvement of RUQ pain, however still complains of constant frontal headache. D.bili down trended to 2.9 from 3.5. ALP up trended to 460 from 280. Iron panel Significant for FE 15, TIBC 223, TIBC %5. Alpha-1 antitrypsin, serum yellow plasmin, plasma copper, YON screen and antimitochondrial antibodies were ordered to rule out other etiologies of hyperbilirubinemia and elevated liver enzymes. Hepatitis panel returned negative as expected. Blood culture showed no bacterial growth for 24 hours preliminary. Patient is currently n.p.o. for laparoscopic cholecystectomy today by Dr Yanez. Exam Vital Signs Temp Pulse Resp BP Pulse Ox O2 Del Method 97.2 F 66 16 149/83 H 95 Room Air 06/19/24 07:56 06/19/24 07:56 06/19/24 07:56 06/19/24 07:56 06/19/24 07:56 06/19/24 07:56 Narrative Exam Constitutional Alert, oriented x 3 and comfortable. Elderly male, Icteric - improving HEENT Vision grossly intact. Patent nares. Trachea midline Respiratory Chest normal on inspection and clear auscultation bilaterally Cardiovascular S1 and S2 audible, RRR. No murmurs, carotid bruit, occasional skipped beats. JVD not assessed Abdominal SOft and tender to palpation right upper quadrant and epigastrium. BS + Genitourinary No bladder tenderness, no flank pain. Normal to palpation Musculoskeletal Extremities tone within normal limits. Trace LE edema. Neurological CN II - XII grossly intact. Extremity motor and sensation grossly intact. Skin Warm, dry and intact. No apparent lesions. Psychiatric Patient has good affect, is cooperative Objective Labs 06/19/24 04:55 06/19/24 04:55 Labs: Laboratory Results - last 24 hr 06/18/24 06/19/24 15:36 04:55 WBC 6.4 D RBC 3.64 L Hgb 11.5 L D Hct 32.7 L MCV 90 MCH 31.6 MCHC 35.2 RDW Std Deviation 40.0 Plt Count 157 Neut % (Auto) 70 Lymph % (Auto) 11 [place] % (Auto) 15 H Eos % (Auto) 3 Baso % (Auto) 1 Neut # (Auto) 4.5 Lymph # (Auto) 0.7 L [place] # (Auto) 1.0 H Eos # (Auto) 0.2 Baso # (Auto) 0.0 Immature Gran # (Auto) 0.04 H Absolute Nucleated RBC 0.00 Immature Gran % 1 H Nucleated RBC % 0 PT 11.7 INR 1.1 APTT 26.1 Sodium 136 Potassium 3.4 D Chloride 102 Carbon Dioxide 24.3 Anion Gap 10 BUN 11 Creatinine 0.9 Estim Creat Clear Calc 78.1 eGFR > 60 BUN/Creatinine Ratio 12 Glucose 88 Calculated Osmolality 270 L Calcium 9.2 Corrected Calcium 9.6 Phosphorus 3.2 Magnesium 2.1 Iron 13 L TIBC 223 L Iron Saturation 5 L Unsat Iron Binding 210 L Total Bilirubin 3.8 H D Direct Bilirubin 3.5 H 2.9 H AST 104 H ALT 64 H Alkaline Phosphatase 460 H D Total Protein 5.7 Albumin 3.5 D Globulin 2.2 L Albumin/Globulin Ratio 1.6 Hepatitis A IgM Ab Non Reactive Hep Bs Antigen Non Reactive Hep B Core IgM Ab Non Reactive Hepatitis C Antibody Non Reactive Quality Measures Quality Measures none Advance care planning discussed with:: other Assessment & Plan Assessment Current Active Medications: Generic Name Dose Route Start Last Admin Trade Name Freq PRN Reason Stop Dose Admin Acetaminophen 650 mg 06/19/24 09:22 Acetaminophen 325 Mg Tablet PO 07/18/24 14:40 Q4HR PRN Pain Scale 1-3 or fever >100.4 Sodium Chloride 1,000 mls @ 100 mls/hr 06/17/24 19:21 06/19/24 00:51 Ns IV 07/17/24 19:20 100 mls/hr .Q10H PROSPER Administration Ceftriaxone Sodium/Dextrose 50 mls @ 100 mls/hr 06/18/24 10:56 06/19/24 08:28 Rocephin/D5w 1gm Iv Premix IV 06/25/24 10:55 100 mls/hr QDAY PROSPER Administration Morphine Sulfate 1 mg 06/18/24 14:41 06/19/24 06:06 Morphine Sulf Inj 10 Mg/Ml Vial IV 06/23/24 14:40 1 mg Q4H PRN Administration PAIN SCALE 7-10 (Severe Ondansetron HCl 4 mg 06/18/24 10:54 Ondansetron Inj 2 Mg/Ml Inj 2 Ml IV 07/18/24 10:53 Q6H PRN NAUSEA OR VOMITING Protocol Pantoprazole Sodium 40 mg 06/18/24 14:45 06/19/24 08:28 Pantoprazole Inj 40 Mg Vial IV 07/18/24 14:44 40 mg QDAY PROSPER Administration Plan Patient is a 64-year-old male with a past medical history significant for eosinophilic esophagitis and hyperlipidemia. Patient follows up with PCP Dr. Martina Shaver, pole truck driver Dr. Ramos and maintenance plumber Dr. Vuong. Patient presented to the ED today with a chief complaint of epigastric pain.Patient will be admitted for management of acalculous cholecystitis. GI and general surgery were both consulted. 1. Abdominal pain?resolving 2. Jaundice?resolving 3. Pruritus?resolving Secondary to 4. Acute acalculous cholecystitis 5. Metabolic Dysfunction Associated Steatohepatitis Patient presented with epigastric abdominal pain 04/24 which initially started 2 months ago and was more or less constant throughout the entire period with progressive worsening of symptoms. Also had associated scleral icterus and generalized pruritus which recently developed. On exam patient has scleral icterus, epigastric and right upper quadrant pain to palpation. In the ED ? Patient was treated with 2L IVF NS bolus, morphine 4 Mg IV x 1, ondansetron 4 Mg IV x 1 and Zosyn 3.375 g x 2. His labs were significant for T.bili 5.7 and ALP 280. Triglycerides 96, cholesterol 118, LDL 73 and HDL 26. Hepatitis panel returned negative as expected. Blood culture showed no bacterial growth for 24 hours preliminary On imaging gallbladder Gallbladder ultrasound showed a thickened gallbladder wall up to 0.48 cm with edema, liver 16 cm fatty infiltration with lobular contour, Gallbladder sludge. Abdomen/pelvis CT was significant for acute acalculous cholecystitis. MRCP was also significant for acute acalculous cholecystitis, no common hepatic or CBD stones. DDx: Acute acalculous cholecystitis, pancreatitis, acute hepatitis, peptic ulcer disease, appendicitis Imaging confirmed acute acalculous cholecystitis and this is the #1 diagnosis. AST and ALT only mildly elevated so acute hepatitis unlikely. Patient also has history of eosinophilic esophagitis so abdominal pain may also be related to this. Is possible that appendicitis can be a differential, however unlikely as not seen on imaging and no signs of peritonitis currently. Discontinued ezetimibe, Home medication due to derangement of LFTs and increased T. bili. Currently patient NPO, adequate urine output and mentation is at baseline. Patient endorses improvement of RUQ pain, however still complains of constant frontal headache. Plan: ? Keep n.p.o. ? CBC, CMP ? Acetaminophen 650 mg p.o. Q4 hourly for mild pain or fever ? Pain control with hydrocodone 5/325 Q4 hourly as needed for moderate pain and morphine 1 Mg IV Q4 hourly as needed for severe pain. ? Started ceftriaxone 1 g IV daily for cholecystitis on [06/18? ? Patient on SCDs as he is allergic to heparin and heparin analogs ? Patient scheduled for laparoscopic cholecystectomy today ? GI, Dr. Vuong consulted. Appreciate recommendations ? General Surgery, Dr. Sparrow consulted. Appreciate recommendations 5. Hyperbilirubinemia?improving 6. Transaminitis On admission T. bili 5.1. AST 46, AL T59, ALP 280 DDx: Cholecystitis, drug-induced, cirrhosis, acute hepatitis, Ajay's disease, pancreatitis, HIV, parasitic infection, hypoperfusion. ALP significantly elevated at 280 and T. bili at 5.1, will order direct bili to further assess. Etiology most likely secondary to obstructive gallstone which subsequently passed. AST and ALT only mildly elevated therefore acute/autoimmune hepatitis unlikely. Also patient had a negative hepatitis panel from 2019 and is in a monogamous relationship with his and also denies IV drug use. Lipase was 27 and patient also denied any vomiting, pancreatitis also unlikely. Hepatitis panel returned negative as expected. D.bili down trended to 2.9 from 3.5. ALP up trended to 460 from 280. Iron panel Significant for FE 15, TIBC 223, TIBC %5. Plan: ? Pending Alpha-1 antitrypsin, serum yellow plasmin, plasma copper, YON screen and antimitochondrial antibodies were ordered to rule out other etiologies of hyperbilirubinemia and elevated liver enzymes. As per GI recommendations. ? Continue to trend bilirubin 7. Hyperlipidemia Patient has a family history of hypercholesterolemia and was recently started on ezetimibe. Triglycerides 96, cholesterol 118, LDL 73 and HDL 26. Ezetimibe discontinued currently due to deranged liver enzymes. 8. Eosinophilic esophagitis Patient was first diagnosed in [address] Ramirez after EGD with biopsies. 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 He has had multiple EGDs with dilatation in the past for esophageal stenosis/strictures. 2008?screening colonoscopy and EGD with esophageal dilatation [[facility] by Dr. Ramirez] 2009, 2010/2011/2016/2017?EGD with esophageal dilatation Home medication pantoprazole 40 Mg p.o. daily Plan: ? Continue home medication pantoprazole 40 Mg p.o. daily 9. Headache Patient endorses constant frontal headache 6/10 in intensity which was present since 3 days prior to admission. Patient denies any history of migraines, etiology likely due to to pain. Will continue to monitor after surgery for resolution. Health maintenance: Disposition: For laparoscopic cholecystectomy today. Diet: N.p.o. Lines: pIVs GI Prophylaxis: Protonix Thrombo Prophylaxis: SCDs Code status: FULL CODE Plan of care discussed with Attending Dr. Luna and PGY2 Dr. Tee Murray MD PGY 1
--- NOTE | 2024-06-19 13:43 | SUR.PHASEI ---
1343 Patient arrived to recovery resting comfortably in [facility], on oxygen 8L via nasal cannula, breathing unlabored, vital signs stable, denies pain, dressing intact to abdomen; dressing with PADMINI 15F round (sanguineous fluid present in drain) with rea, adaptic, gauze, and medipore tape, no bleeding noted, dressing at umbilicus sutures, gauze, medipore tape, no bleeding noted, lung sounds clear upon auscultation, bilateral radial pulses present when palpated, report received from Rambo BRIGHT and Dr. Shetty
--- NOTE | 2024-06-19 13:54 | ESOP_ITS ---
Date of Procedure 06/19/24 Pre Op Diagnosis Acute cholecystitis with cholelithiasis Post Op Diagnosis Same Procedure Attempted laparoscopic cholecystectomy Open cholecystectomy Findings Patient was found to have extensive inflammation and that prevented me from doing laparoscopic cholecystectomy. Therefore open cholecystectomy was performed Procedure Description The patient was brought to the operating room endotracheal anesthesia was given. Abdomen was prepped with ChloraPrep solution and draped in a sterile manner. Then standard umbilical incision was made after the timeout was performed. Veress needle was inserted and pneumoperitoneum was created to 15 mmHg. Then I passed a 12 mm trocar and a 10 mm camera and looked at the liver bed and I could not see the gallbladder because it was covered with omentum. Another 5 mm trocar was inserted in the mid epigastric region and two 5 mm trocars were inserted laterally. I pulled out the omentum to see the gallbladder fundus which was barely visible. It was very distended and thickened. Therefore I introduced ovarian cyst needle and decompressed the bile. Then the gallbladder was grasped and retracted upwards and outwards. I peeled off the dense omentum but I could not reach the neck of the gallbladder because it was firmly adherent to the duodenum. At this time I felt that if I persist on removing the dense additions I may injure the duodenum. Moreover cystic duct could not be seen because of the extensive inflammation. I planned to do operative cholangiogram preoperatively because of the elevated liver enzymes but I could not go near the cystic duct. The gallbladder was extremely thickened and was leaking purulent material along with colorless bile. At this time I decided to open the patient for avoiding injury to the surrounding structuresand to accomplish safe cholecystectomy. The fascia over the umbilicus was closed with interrupted 0 Vicryl and the skin was closed with 4-0 nylon. The instruments were pulled out of abdomen along with the scope. Then I made a standard Olga incision in the right upper quadrant. Abdominal cavity was entered and the gallbladder as expected was extremely thickened and was firmly adherent to the liver bed. The surrounding tissues were retracted by placing lap sponge over the transverse colon and pulling it downwards. Then I used lap sponge and retracted the stomach medially. A second certified physician's assistant was used at this time to retract the liver upwards using a Shidler. Then I opened the gallbladder at the fundus and removed all the debris. The thickening of the gallbladder was extremely difficult to handle because it was bleeding while dissection. Using harmonic demarcus to control the bleeding I proceeded with dissection. Then staying within the lumen of the gallbladder I reached the neck of the gallbladder but I could not find out the cystic duct. However there was an opening which I think was going into the cystic I probed it and it appeared to be the cystic duct. I suture-ligated with a 2-0 silk. Cystic artery could not be easily seen. I removed most of the gallbladder except a small rim of it in which the cystic duct was embedded and then the liver bed was dissected out to remove the gallbladder completely. Then I coagulated the liver bed bed with cautery and irrigated the wound to make sure there is no bleeding. Some of the bleeding points are well-controlled with cautery and the used Surgicel for the liver bed. Because of the nebulous cystic duct closure I decided to leave and drain and I used a 15 round Arley-Richard below the liver and brought it out through one of the trocar sites and sutured to the skin with 2-0 silk. 2 Surgicel's were used in the liver bed for hemostasis. The abdomen was closed in layers using running PDS for the posterior rectus sheath and the peritoneum. Anterior rectus sheath was closed similarly with 0 PDS. Subcutaneous tissue was irrigated and closed with rea after injecting half percent Marcaine for analgesia. The trocar sites were closed with 4-0 nylon stitches and a dressing was applied with Adaptic and 4 x 4 gauze and patient tolerated the procedure well and left operating room in stable condition. Anesthesia GETA Pathology / specimen Other (Thickened inflamed gallbladder) IVF Infused 1,100 Estimated Blood Loss 200 Condition Stable Disposition PACU Surgeon Karen Yanez MD Surgical Staff Operation Date: 06/19/24 10:45 Case Staff Anesthesiologist: Jay Shetty RN First Assistant: Nidhi Hickey
[2024-06-19] MEDS: fentaNYL CIT INJ 50 mCg/ML AMP 2ML 25 MCG IV (14:04)
[2024-06-19] MEDS: KETOROLAC INJ 30 MG/ML VIAL IVP (14:06)
[2024-06-19] MEDS: ACETAMINOPHEN IVPB 1,000 MG/100 ML VIAL 250 MG IV (14:08)
--- NOTE | 2024-06-19 14:13 | SUR.PHASEI ---
[address] Shetty regarding patient blood pressure and pain, telephone order received for pain Dilaudid 0.4mg via IV Q10min; max dose 4, will administer per MD order, no new orders for blood pressure, anesthesia provider stated to treat pain first.
[2024-06-19] MEDS: HYDROmorphone INJ 2 MG/ML VIAL 0.4 MG IVP ×4 (14:19→14:58)
--- NOTE | 2024-06-19 15:22 | SUR.PHASEI ---
1522 notified anesthesia provider regarding patient BP elevated 179/108 HR 70, telephone order recevied for Hydralazine 10mg via IV, will administer per order
[2024-06-19] MEDS: hydrALAZINE INJ 20 MG/ML VIAL 10 MG IV (15:28)
--- NOTE | 2024-06-19 15:56 | SUR.PHASEI ---
1533 Report given to Eleanor BRIGHT, patient meets discharge criteria from recovery, awake and alert, on oxygen 3L via nasal cannula, breathing unlabored, vital signs stable, per patient his pain is tolerable, dressing intact; no bleeding noted, PADMINI drain in place with sanguineous fluid in drain, patient eating ice chips; tolerating well, denies nausea 1550 Called Eleanor to update current BP 147/96 and drained PADMINI drain 20ml sanguineous fluid 1556 Patient awake and sitting in rney eating ice chips, continues on oxygen 3L via nasal cannula, breathing unlabored, vital signs stable, per patient is pain is 3/10, tolerable, dressing intact; no bleeding note. Patient transported via rney to room 359 without incident.
[2024-06-19] MEDS: MORPHINE SULF INJ 10 MG/ML VIAL 5 MG IVP ×2 (16:46→20:48)
[2024-06-19] MEDS: PIPER/TAZO 3.375 GM 50 ML IV (17:41)
--- NOTE | 2024-06-19 18:26 | PD.SUROPNT ---
Date of Procedure 06/19/24 Procedure Open cholecystectomy Surgeon Karen Yanez MD Surgical Staff Operation Date: 06/19/24 10:45 Case Staff Anesthesiologist: Jay Shetty RN First Assistant: Nidhi Hickey
--- NOTE | 2024-06-19 19:53 | ESPR_ITS ---
Documentation for date of: 06/19/24 Subjective Subjective Interval history: Patient underwent open cholecystectomy because of the intense inflammation of the gallbladder and the gallbladder bed extremely difficult surgery LFTs are improving with total bilirubin going down to 3.8 AST ALT improving Leukocytosis is also improved Exam Vital Signs Temp Pulse Resp BP Pulse Ox O2 Del Method O2 Flow Rate 98.2 F 73 17 113/67 97 Nasal Cannula 2 06/19/24 16:20 06/19/24 16:20 06/19/24 16:20 06/19/24 16:20 06/19/24 16:20 06/19/24 16:20 06/19/24 16:20 Constitutional Comments: In some pain Routine Respiratory Exam Comments: Normal to auscultation Routine Abdominal Exam Comments: No bowel sounds tender Objective Labs 06/19/24 04:55 06/19/24 04:55 Labs: Laboratory Results - last 24 hr 06/18/24 06/19/24 15:36 04:55 WBC 6.4 D RBC 3.64 L Hgb 11.5 L D Hct 32.7 L MCV 90 MCH 31.6 MCHC 35.2 RDW Std Deviation 40.0 Plt Count 157 Neut % (Auto) 70 Lymph % (Auto) 11 [place] % (Auto) 15 H Eos % (Auto) 3 Baso % (Auto) 1 Neut # (Auto) 4.5 Lymph # (Auto) 0.7 L [place] # (Auto) 1.0 H Eos # (Auto) 0.2 Baso # (Auto) 0.0 Immature Gran # (Auto) 0.04 H Absolute Nucleated RBC 0.00 Immature Gran % 1 H Nucleated RBC % 0 Sodium 136 Potassium 3.4 D Chloride 102 Carbon Dioxide 24.3 Anion Gap 10 BUN 11 Creatinine 0.9 Estim Creat Clear Calc 78.1 eGFR > 60 BUN/Creatinine Ratio 12 Glucose 88 Calculated Osmolality 270 L Calcium 9.2 Corrected Calcium 9.6 Phosphorus 3.2 Magnesium 2.1 Iron 13 L TIBC 223 L Iron Saturation 5 L Unsat Iron Binding 210 L Total Bilirubin 3.8 H D Direct Bilirubin 2.9 H AST 104 H ALT 64 H Alkaline Phosphatase 460 H D Total Protein 5.7 Albumin 3.5 D Globulin 2.2 L Albumin/Globulin Ratio 1.6 Impressions Impression: # Status post open cholecystectomy for inflamed gallbladder and acute cholecystitis extremely difficult surgery Continue postoperative care Assessment & Plan A&P Narrative # Acute cholecystitis acalculous versus calculus which is difficult to assess on the imaging studies Ultrasound done in March of this year showed cholelithiasis Patient also has cholestasis leading to abnormal liver function tests No evidence of CBD stone Plan Continue IV antibiotics Case discussed with the search engine marketing specialist Laparoscopic versus open cholecystectomy in the morning Complete workup ordered for the remote possibility of chronic active hepatitis Thank you once again for the opportunity to participate in the care of this patient Time Spent With Patient Time: Total time spent is greater than 50% in coordination of care (as documented) at patient's floor/unit and/or counseling patient:
[2024-06-19] MEDS: PIPER/TAZO INJ 3.375 GM in SODIUM CHLORIDE 0.9% (P) 50 ML IV (22:24)
[2024-06-20] VITALS (8 sets, daily range): BP systolic 122–152; BP diastolic 75–91; PULSE 62–96; RESP 18–96; TEMP 36.3–37.6; O2SAT 91–96
[2024-06-20] MEDS: MORPHINE SULF INJ 10 MG/ML VIAL 5 MG IVP ×2 (01:33→05:50)
[2024-06-20] MEDS: SODIUM CHLORIDE 0.9% 1000 ML 1,000 ML 100 ML IV ×2 (04:25→16:22)
[2024-06-20] MEDS: PIPER/TAZO INJ 3.375 GM in SODIUM CHLORIDE 0.9% (P) 50 ML IV ×3 (05:47→21:18)
[2024-06-20 05:57] LABS: Basophils % (Auto) 0 % (0-2.5); Eosinophils # (Auto) 0.1 Thou/mm3 (0.0-0.5); Eosinophils % (Auto) 1 % (0-10); Hematocrit 30.8 % (41.0-53.0); Hemoglobin 10.9 g/dL (13.5-16.0); Immature Granulocytes % (Auto) 1 % (0-0); Immature Granulocytes Auto 0.08 Thou/mm3 (0.00-0.00); Lymphocytes # (Auto) 0.6 Thou/mm3 (1.0-4.8); Lymphocytes % (Auto) 7 % (10-50); Mean Corpuscular HGB Conc 35.4 g/dl (31.0-37.0); Mean Corpuscular Hemoglobin 31.7 pg (25.0-35.0); Mean Corpuscular Volume 90 fL (80-100); Monocytes % (Auto) 11 % (0-12); Neutrophils # (Auto) 6.9 Thou/mm3 (1.8-7.7); Neutrophils % (Auto) 80 % (37-80); Nucleated Red Blood Cell % 0 /100 WBC (0); Platelet Count 190 Thou/mm3 (140-440); Red Blood Count 3.44 Miln/mm3 (4.50-5.90); White Blood Count 8.6 Thou/mm3 (3.8-10.6)
[2024-06-20 06:23] LABS: Alanine Aminotransferase 53 U/L (10-49); Albumin, Serum 3.3 gm/dL (3.4-4.8); Albumin/Globulin Ratio 1.6 (1.2-2.2); Alkaline Phosphatase 412 U/L (46-116); Anion Gap 10 (7-16); Aspartate Amino Transferase 59 U/L (0-34); BUN/Creatinine Ratio 10 Ratio (12-20); Bilirubin,Total 2.1 mg/dL (0.3-1.2); Blood Urea Nitrogen 10 mg/dL (9-23); Calcium 8.5 mg/dL (8.3-10.6); Calcium (Corrected) 9.1 mg/dL (8.5-10.1); Carbon Dioxide 23.9 mMol/L (20.0-31.0); Chloride 104 mMol/L (98-107); Estimated Creatinine Clearance 70.3 mL/min (>60); Globulin 2.1 gm/dL (2.3-3.5); Glucose 92 mg/dL (74-106); Magnesium 1.8 mg/dL (1.6-2.6); Osmolality,Calculated 274 (275-295); Phosphorous 3.8 mg/dL (2.4-5.1); Potassium 3.2 mMol/L (3.4-5.1); Sodium 138 mMol/L (136-145); Total Protein 5.4 gm/dL (5.7-8.2); eGFR > 60 See Note
--- NOTE | 2024-06-20 08:34 | ESPR_ITS ---
<Statement entered by Tamara Villegas MD - 06/20/24 19:17> The patient examined by me along with resident physician PGY 1 appears to be clinically doing well not having chest pain or shortness of breath underwent successful cholecystectomy no complications cardiac bhandari stable no arrhythmias. Recommend continue medical management and follow-up with cardiology as an outpatient for now is doing very well from cardiology point of view can be discharged. Documentation for date of: 06/20/24 Subjective Subjective Interval history: Patient seen and examined at bedside this morning. Patient had no overnight events. Patient underwent cholecystectomy yesterday which was supposed to be laparoscopically, but was converted to open due to complexity. Patient has no cardiac complaints at this time Patient's blood pressure has been in the 130s over 90s overnight. This could be likely due to pain. Recommend to keep potassium and magnesium above 4 and 2 respectively to avoid any arrhythmias. We will sign off, please reach out with any further questions Exam Vital Signs Temp Pulse Resp BP Pulse Ox O2 Del Method O2 Flow Rate 98.5 F 83 19 149/91 H 94 L Room Air 2 06/20/24 07:45 06/20/24 07:45 06/20/24 07:45 06/20/24 07:45 06/20/24 07:45 06/20/24 07:45 06/20/24 07:45 Narrative Exam General: A/O x3, no acute distress Eyes: PERRL, EOMI. icteric (improving), vision grossly intact. Ears: No ear pain, no ear discharge, Hearing grossly intact. Nose: No nasal discharge. Mouth/Throat: Moist mucous membranes, no redness, no lesions. Neck: Neck supple, non-tender, no cervical lymphadenopathy. Lungs: Clear DONNA to auscultation and percussion, No accessory muscle use. Cardio: Normal S1/S2, regular rhythm, no murmurs, no JVD or carotid bruits. Abdomen: Soft, tender around surgical sites, no palpable masses, peristalsis present, no guarding or rebound. Surgical scars covered with clean dressing. Drainage in place and draining well. Extremities: Symmetrical, no significant deformities, no peripheral edema , non-tender, peripheral pulses presents. Skin: No rashes, no lesions, warm to touch, mildly jaundice. Neuro: No focal neurological deficits. motor and sensory intact Psych: Cooperative, appropriate mood and effect Objective Labs 06/20/24 05:02 06/20/24 05:02 Labs: Laboratory Results - last 24 hr 06/20/24 05:02 WBC 8.6 RBC 3.44 L Hgb 10.9 L Hct 30.8 L MCV 90 MCH 31.7 MCHC 35.4 RDW Std Deviation 41.0 Plt Count 190 D Neut % (Auto) 80 Lymph % (Auto) 7 L [place] % (Auto) 11 Eos % (Auto) 1 Baso % (Auto) 0 Neut # (Auto) 6.9 Lymph # (Auto) 0.6 L [place] # (Auto) 1.0 H Eos # (Auto) 0.1 Baso # (Auto) 0.0 Immature Gran # (Auto) 0.08 H Absolute Nucleated RBC 0.00 Immature Gran % 1 H Nucleated RBC % 0 Sodium 138 Potassium 3.2 L Chloride 104 Carbon Dioxide 23.9 Anion Gap 10 BUN 10 Creatinine 1.0 Estim Creat Clear Calc 70.3 eGFR > 60 BUN/Creatinine Ratio 10 L Glucose 92 Calculated Osmolality 274 L Calcium 8.5 Corrected Calcium 9.1 Phosphorus 3.8 Magnesium 1.8 Total Bilirubin 2.1 H D AST 59 H ALT 53 H Alkaline Phosphatase 412 H D Total Protein 5.4 L Albumin 3.3 L Globulin 2.1 L Albumin/Globulin Ratio 1.6 Quality Measures Quality Measures none Advance care planning discussed with:: patient and spouse Assessment & Plan Assessment Current Active Medications: Generic Name Dose Route Start Last Admin Trade Name Freq PRN Reason Stop Dose Admin Acetaminophen 650 mg 06/19/24 09:22 Acetaminophen 325 Mg Tablet PO 07/18/24 14:40 Q4HR PRN Pain Scale 1-3 or fever >100.4 Sodium Chloride 1,000 mls @ 100 mls/hr 06/17/24 19:21 06/20/24 04:25 Ns IV 07/17/24 19:20 100 mls/hr .Q10H PROSPER Administration Piperacillin Sod/Tazobactam 50 mls @ 12.5 mls/hr 06/19/24 22:00 06/20/24 05:47 Sod 3.375 gm/ Sodium Chloride IV 06/26/24 21:59 12.5 mls/hr Q8HR PROSPER Administration Magnesium Sulfate 2 gm in 50 mls @ 25 mls/hr 06/20/24 08:19 Magnesium Sulfate Ivpb IV 06/20/24 10:18 X1 ONE Ketorolac Tromethamine 30 mg 06/20/24 08:33 Ketorolac Inj 30 Mg/Ml Vial IVP 06/25/24 08:32 Q6HR PRN PAIN Morphine Sulfate 5 mg 06/19/24 16:12 06/20/24 05:50 Morphine Sulf Inj 10 Mg/Ml Vial IVP 06/24/24 16:11 5 mg Q4HR PRN Administration PAIN RATED 4-10 Ondansetron HCl 4 mg 06/18/24 10:54 Ondansetron Inj 2 Mg/Ml Inj 2 Ml IV 07/18/24 10:53 Q6H PRN NAUSEA OR VOMITING Protocol Pantoprazole Sodium 40 mg 06/18/24 14:45 06/19/24 08:28 Pantoprazole Inj 40 Mg Vial IV 07/18/24 14:44 40 mg QDAY PROSPER Administration Plan 64-year-old male with past medical history of eosinophilic esophagitis, esophageal stricture status post dilation on May 19, 2024, hyperlipidemia, GERD and BPH was admitted to the hospital on 06/18/2024 due to acute acalculous cholecystitis. 1. Acute acalculous cholecystitis 2. Transaminitis 3. Pruritus 4. Jaundice 5. Abdominal pain 6. Hyperbilirubinemia ?Patient has been complaining of epigastric pain with radiated to his right upper quadrant and eventually became diffuse in nature for the past 8 days. He stated this has been going on since late March and he was priorly seen at [facility], but he was worked up for atypical chest pain. ?Abdomen/pelvis CT, gallbladder ultrasound, and MRCP all showed acute acalculous cholecystitis with following CBD dilation or stones. ?Patient's T bilirubin has been elevated since admission at 5.7 as well as his liver enzymes AST 46, ALT 59, alkaline phosphatase 280 ?Given the patient had extensive cardiac workup at [facility] in which his echo as well as stress test and nuclear stress test in my office were all normal he will not need further cardiac diagnostic testing at this time. ? Patient's preoperative mortality predictor score was 6.5 points indicating 0.6% risk of perioperative mortality ?Revised cardiac risk index 1 point indicating 6% risk of major cardiac event ?General Surgery consulted did an open july. Post-op day 1 -Continue management as per primary care team 7. Hyperlipidemia ?Patient has been taking ezetimibe 10 mg daily ? Recommend to continue patient's medication during hospital course ?Continue current management as per primary care team 8. Eosinophilic esophagitis 9. Esophageal strictures s/p dilation 10. GERD ?Patient takes pantoprazole 40 mg daily at home ? Recommend to avoid any NSAIDs ?Recommend to continue patient's medication during hospital course ?Continue current management as per primary care team 11. BPH ?Continue management as per primary care team Continue rest of management as per primary team. We will sign off, please reach out with any further questions We are grateful to be able to participate in Mr. Pérez's care. Thank you for the consult Plan of care discussed with attending System Sales Consultant, Dr. Bakari Mccall MD PGY-1
[2024-06-20] MEDS: Magnesium Sulfate 2 GM Ivpb 2 GM/50 ML BAG IV (09:05)
[2024-06-20] MEDS: POTASSIUM CHLORIDE 20 mEq TABCR 40 MEQ PO (09:05)
[2024-06-20] MEDS: PANTOPRAZOLE INJ 40 MG VIAL IV (09:05)
[2024-06-20] MEDS: KETOROLAC INJ 30 MG/ML VIAL IVP ×3 (09:05→23:41)
[2024-06-20 09:23] LABS: Bilirubin,Direct 1.3 mg/dL (0.0-0.3)
--- NOTE | 2024-06-20 09:48 | ESPR_ITS ---
<Statement entered by Trip Luna MD - 06/20/24 17:04> I have discussed and was present for the essential components of the history, physical examination, diagnosis, and treatment plan with the resident. I agree with the patient's care as documented by the resident and amended herein by me. Trip Luna MD. <Statement entered by Cristopher Waldrop MD - 06/20/24 14:22> Patient was seen and examined at the bedside. Patient was encouraged to ambulate for passage of flatus. Patient's family was also present on the bedside and was explained regarding patient's current management. Patient underwent ex lap for removal of gallbladder for acute acalculous cholecystitis and lap july was unsuccessful. Will be keeping the patient for pain management and escalating diet as tolerated. Surgery recommended to continue Toradol for pain control. Patient also received PADMINI drain with serosanguineous fluid collection. Electrolytes were repleted. All labs and orders were reviewed. I saw and examined the patient, and I agree with current management stated by Dr Julien MD,PGY1. Plan of care was discussed with the attending physician and resident physician. Disclaimer: Despite multiple revisions, due to the dictation software being used, the document bellow may not be free of grammatical errors including phonetic/typographic errors. However, this does not deter from our commitment to providing health care in the patient's best interest in mind. Dr. Benjie MD, PGY 2 Documentation for date of: 06/20/24 Subjective Subjective Interval history: Patient was seen and examined at bedside this AM. Patient had laparoscopic cholecystectomy yesterday which was completed to open procedure due to inflamed gallbladder adherent to the liver bed and duodenum. Patient tolerating clear liquid diet. Adequate urine output and mentation at baseline. PADMINI drain in right upper quadrant. Patient complains of pain to surgical sites in the abdomen. T.bili down trended to 2.1 from 3.8 on admission. ALP down trended to 412 from 460. Pending alpha-1 antitrypsin, serum yellow plasmin, plasma copper, YON screen and antimitochondrial antibodies to rule out other etiologies of hyperbilirubinemia and elevated liver enzymes. Hepatitis panel returned negative as expected. Blood culture showed no bacterial growth for 48 hours preliminary. Patient is on Toradol for moderate to severe pain and morphine 5 mg IV Q4 hourly for breakthrough pain. General Surgery, Dr Yanez and GI, Dr. Vuong closely following the case. Appreciate recommendations. Exam Vital Signs Temp Pulse Resp BP Pulse Ox O2 Del Method O2 Flow Rate 98.5 F 83 19 149/91 H 94 L Room Air 2 06/20/24 07:45 06/20/24 07:45 06/20/24 07:45 06/20/24 07:45 06/20/24 07:45 06/20/24 07:45 06/20/24 07:45 Narrative Exam Constitutional Alert, oriented x 3 and comfortable. Elderly male, Icteric - improving HEENT Vision grossly intact. Patent nares. Trachea midline Respiratory Chest normal on inspection and decreased air entry at bases with atelectasis. Cardiovascular S1 and S2 audible, RRR. No murmurs, carotid bruit, occasional skipped beats. JVD not assessed Abdominal SOft and tender to palpation at surgical sites. BS +. RUQ bandage noted, umbilical bandage noted, PADMINI drain in RUQ with sanguinous drainage. Genitourinary No bladder tenderness, no flank pain. Normal to palpation Musculoskeletal Extremities tone within normal limits. No LE edema. Neurological CN II - XII grossly intact. Extremity motor and sensation grossly intact. Skin Warm, dry and intact. No apparent lesions. Psychiatric Patient has good affect, is cooperative Objective Labs 06/20/24 05:02 06/20/24 05:02 Labs: Laboratory Results - last 24 hr 06/20/24 06/20/24 05:02 08:46 WBC 8.6 RBC 3.44 L Hgb 10.9 L Hct 30.8 L MCV 90 MCH 31.7 MCHC 35.4 RDW Std Deviation 41.0 Plt Count 190 D Neut % (Auto) 80 Lymph % (Auto) 7 L [place] % (Auto) 11 Eos % (Auto) 1 Baso % (Auto) 0 Neut # (Auto) 6.9 Lymph # (Auto) 0.6 L [place] # (Auto) 1.0 H Eos # (Auto) 0.1 Baso # (Auto) 0.0 Immature Gran # (Auto) 0.08 H Absolute Nucleated RBC 0.00 Immature Gran % 1 H Nucleated RBC % 0 Sodium 138 Potassium 3.2 L Chloride 104 Carbon Dioxide 23.9 Anion Gap 10 BUN 10 Creatinine 1.0 Estim Creat Clear Calc 70.3 eGFR > 60 BUN/Creatinine Ratio 10 L Glucose 92 Calculated Osmolality 274 L Calcium 8.5 Corrected Calcium 9.1 Phosphorus 3.8 Magnesium 1.8 Total Bilirubin 2.1 H D Direct Bilirubin 1.3 H AST 59 H ALT 53 H Alkaline Phosphatase 412 H D Total Protein 5.4 L Albumin 3.3 L Globulin 2.1 L Albumin/Globulin Ratio 1.6 Quality Measures Quality Measures none Advance care planning discussed with:: other Assessment & Plan Assessment Current Active Medications: Generic Name Dose Route Start Last Admin Trade Name Freq PRN Reason Stop Dose Admin Acetaminophen 650 mg 06/19/24 09:22 Acetaminophen 325 Mg Tablet PO 07/18/24 14:40 Q4HR PRN Pain Scale 1-3 or fever >100.4 Sodium Chloride 1,000 mls @ 100 mls/hr 06/17/24 19:21 06/20/24 04:25 Ns IV 07/17/24 19:20 100 mls/hr .Q10H PROSPER Administration Piperacillin Sod/Tazobactam 50 mls @ 12.5 mls/hr 06/19/24 22:00 06/20/24 05:47 Sod 3.375 gm/ Sodium Chloride IV 06/26/24 21:59 12.5 mls/hr Q8HR PROSPER Administration Magnesium Sulfate 2 gm in 50 mls @ 25 mls/hr 06/20/24 08:19 06/20/24 09:05 Magnesium Sulfate Ivpb IV 06/20/24 10:18 25 mls/hr X1 ONE Administration Ketorolac Tromethamine 30 mg 06/20/24 08:33 06/20/24 09:05 Ketorolac Inj 30 Mg/Ml Vial IVP 06/25/24 08:32 30 mg Q6HR PRN Administration PAIN Morphine Sulfate 5 mg 06/19/24 16:12 06/20/24 05:50 Morphine Sulf Inj 10 Mg/Ml Vial IVP 06/24/24 16:11 5 mg Q4HR PRN Administration PAIN RATED 4-10 Ondansetron HCl 4 mg 06/18/24 10:54 Ondansetron Inj 2 Mg/Ml Inj 2 Ml IV 07/18/24 10:53 Q6H PRN NAUSEA OR VOMITING Protocol Pantoprazole Sodium 40 mg 06/18/24 14:45 06/20/24 09:05 Pantoprazole Inj 40 Mg Vial IV 07/18/24 14:44 40 mg QDAY PROSPER Administration Plan Patient is a 64-year-old male with a past medical history significant for eosinophilic esophagitis and hyperlipidemia. Patient follows up with PCP Dr. Martina Shaver, draw machine operator Dr. Ramos and entertainer or variety artist Dr. Vuong. Patient presented to the ED today with a chief complaint of epigastric pain.Patient will be admitted for management of acalculous cholecystitis. GI and general surgery were both consulted. 1. Abdominal pain?resolving 2. Jaundice?resolving 3. Pruritus?resolving Secondary to 4. Acute acalculous cholecystitis s/p open cholecystectomy 06/19 5. Metabolic Dysfunction Associated Steatohepatitis Patient presented with epigastric abdominal pain 04/24 which initially started 2 months ago and was more or less constant throughout the entire period with progressive worsening of symptoms. Also had associated scleral icterus and generalized pruritus which recently developed. On exam patient has scleral icterus, epigastric and right upper quadrant pain to palpation. In the ED ? Patient was treated with 2L IVF NS bolus, morphine 4 Mg IV x 1, ondansetron 4 Mg IV x 1 and Zosyn 3.375 g x 2. His labs were significant for T.bili 5.7 and ALP 280. Triglycerides 96, cholesterol 118, LDL 73 and HDL 26. Hepatitis panel returned negative as expected. Blood culture showed no bacterial growth for 24 hours preliminary On imaging gallbladder Gallbladder ultrasound showed a thickened gallbladder wall up to 0.48 cm with edema, liver 16 cm fatty infiltration with lobular contour, Gallbladder sludge. Abdomen/pelvis CT was significant for acute acalculous cholecystitis. MRCP was also significant for acute acalculous cholecystitis, no common hepatic or CBD stones. DDx: Acute acalculous cholecystitis, pancreatitis, acute hepatitis, peptic ulcer disease, appendicitis Imaging confirmed acute acalculous cholecystitis and this is the #1 diagnosis. AST and ALT only mildly elevated so acute hepatitis unlikely. Patient also has history of eosinophilic esophagitis so abdominal pain may also be related to this. Is possible that appendicitis can be a differential, however unlikely as not seen on imaging and no signs of peritonitis currently. Discontinued ezetimibe, Home medication due to derangement of LFTs and increased T. bili. Patient had laparoscopic cholecystectomy yesterday which was completed to open procedure due to inflamed gallbladder adherent to the liver bed and duodenum. Patient tolerating clear liquid diet. Adequate urine output and mentation at baseline. PADMINI drain in right upper quadrant. Patient complains of pain to surgical sites in the abdomen. Plan: ? Clear liquid diet for today ? CBC, CMP ? Acetaminophen 650 mg p.o. Q4 hourly for mild pain or fever ? Discontinued ceftriaxone 1 g IV daily after 2 days [06/18?06/19] ? Started on Zosyn 3.375 g IV Q8 hourly [06/19? ? Pain control with Toradol 30 Mg IV Q6 hourly for moderate to severe pain [6?10] ? Pain control with morphine 5 mg IV Q4 hourly as needed for breakthrough pain ? Patient on SCDs as he is allergic to heparin and heparin analogs ? GI, Dr. Vuong consulted. Appreciate recommendations ? General Surgery, Dr. Sparrow consulted. Appreciate recommendations 6. Hyperbilirubinemia?improving 7. Transaminitis On admission T. bili 5.1. AST 46, AL T59, ALP 280 DDx: Cholecystitis, drug-induced, cirrhosis, acute hepatitis, Ajay's disease, pancreatitis, HIV, parasitic infection, hypoperfusion. ALP significantly elevated at 280 and T. bili at 5.1, will order direct bili to further assess. Etiology most likely secondary to obstructive gallstone which subsequently passed. AST and ALT only mildly elevated therefore acute/autoimmune hepatitis unlikely. Also patient had a negative hepatitis panel from 2019 and is in a monogamous relationship with his and also denies IV drug use. Lipase was 27 and patient also denied any vomiting, pancreatitis also unlikely. Hepatitis panel returned negative as expected. D.bili down trended to 2.9 from 3.5. ALP up trended to 460 from 280. Iron panel Significant for FE 15, TIBC 223, TIBC %5. T.bili down trended to 2.1 from 3.8 on admission. ALP down trended to 412 from 460. Plan: ? Pending Alpha-1 antitrypsin, serum yellow plasmin, plasma copper, YON screen and antimitochondrial antibodies were ordered to rule out other etiologies of hyperbilirubinemia and elevated liver enzymes. As per GI recommendations. ? Continue to trend bilirubin 8. Hyperlipidemia Patient has a family history of hypercholesterolemia and was recently started on ezetimibe. Triglycerides 96, cholesterol 118, LDL 73 and HDL 26. Ezetimibe discontinued currently due to deranged liver enzymes. 9. Eosinophilic esophagitis Patient was first diagnosed in [address] Ramirez after EGD with biopsies. 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 He has had multiple EGDs with dilatation in the past for esophageal stenosis/strictures. 2008?screening colonoscopy and EGD with esophageal dilatation [[facility] by Dr. Ramirez] 2009, 2010/2011/2015/2017?EGD with esophageal dilatation Home medication pantoprazole 40 Mg p.o. daily Plan: ? Continue home medication pantoprazole 40 Mg p.o. daily 10. Headache?resolved Patient endorses constant frontal headache 6/10 in intensity which was present since 3 days prior to admission. Patient denies any history of migraines, etiology likely due to to pain. Will continue to monitor after surgery for resolution. Headache now resolved Health maintenance: Disposition: Pain control D2 postop open cholecystectomy. IV antibiotics Diet: Clear liquid diet Lines: pIVs GI Prophylaxis: Protonix Thrombo Prophylaxis: SCDs Code status: FULL CODE Plan of care discussed with Attending Dr. Luna and PGY2 Dr. Benjie Murray MD PGY 1
--- NOTE | 2024-06-20 10:44 | PD.SURPROG ---
Documentation for date of: 06/20/24 Subjective Subjective Brief History: History of present illness revealed that the patient was in his usual health until last Sunday when he noticed pain in the epigastric region radiating to the back. The pain persisted and he is not able to eat for the past week. He also was not able to sleep very well. The pain increased yesterday and came to the emergency room. He noticed that he also had jaundice and dark urine. Patient had a sudden episode of epigastric pain in March and then went to [facility] and had a cardiac workup which was negative. Then again patient had another episode of epigastric pain in May 09. That also resolved. Patient is not able to eat anything at the present time because of the pain. Patient is possibly history revealed that he had extensive history. He had a right inguinal hernia repair rotator cuff on the left shoulder and her multiple dilatation of the esophagus for stricture by Dr. Ramirez. He also had a history of benign prostatic hyperplasia for which he underwent surgery by kurtis. Patient also had a laparoscopic appendectomy performed by sc in 2012 patient had a colonoscopy in 2016 due to blood in the stools. He has a history of his of eosinophilic esophagitis he had a TURP done in [address] Mauricio he also underwent hemorrhoidectomy by Dr. Hughes and multiple esophageal dilatation by Dr. Vuong Narrative: The patient is feeling better other than the incisional pain for which she is using morphine [id number]. Exam Vital Signs Temp Pulse Resp BP Pulse Ox O2 Del Method O2 Flow Rate 98.5 F 83 19 149/91 H 94 L Room Air 2 06/20/24 07:45 06/20/24 07:45 06/20/24 07:45 06/20/24 07:45 06/20/24 07:45 06/20/24 07:45 06/20/24 07:45 His vital signs are normal Routine Abdominal Exam Comments: Abdominal examination showed few bowel sounds. Arley-Richard is draining very minimal serous fluid. Results Results: Laboratory Laboratory Narrative: Laboratory results show normal WBC and his liver enzymes are coming down gradually Assessment & Plan Assessment Additional comments: Impression: Satisfactory postoperative course following open cholecystectomy for extremely inflamed gallbladder Plan Plan: We shall start him on clear liquids Increase ambulation. Try Toradol for pain rather than morphine [id number] Procedures Procedures Attempted laparoscopic cholecystectomy Open cholecystectomy
--- NOTE | 2024-06-20 16:46 | PD.RESEVENT ---
Documentation for date of: 06/20/24 Event Note Event Note: Was called patient by nurse Sunday?at 4:20 PM to review patient due to him complaining of a rash on his back and itching. Upon review patient complains of itching to his neck and back. He stated that he has a tomato allergy and for lunch he had tomato soup Exam: Upon exam patient had a generalized maculopapular rash on his neck and his back. Plan: ? Benadryl 25 Mg p.o. x 1 ? Benadryl 25 Mg p.o. every 6 hourly as needed for itching ? 0.5% hydrocortisone topical ointment apply twice daily to affected area ? If any signs of SOB or anaphylaxis please notify MD Plan of care discussed with Attending Dr. Luna and PGY2 Dr. Benjie Murray MD PGY 1
[2024-06-20] MEDS: DiphenhydrAMINE 25 MG CAPSULE PO (17:27)
--- NOTE | 2024-06-20 20:08 | PD.IMPROG ---
Documentation for date of: 06/20/24 Subjective Subjective Interval history: LFTs gradually improving Doing well postoperatively Encourage ambulation Exam Vital Signs Temp Pulse Resp BP Pulse Ox O2 Del Method O2 Flow Rate 97.9 F 76 18 147/86 H 96 Room Air 2 06/20/24 15:38 06/20/24 15:38 06/20/24 15:38 06/20/24 15:38 06/20/24 15:38 06/20/24 15:38 06/20/24 15:38 Objective Labs 06/20/24 05:02 06/20/24 05:02 Labs: Laboratory Results - last 24 hr 06/20/24 06/20/24 05:02 08:46 WBC 8.6 RBC 3.44 L Hgb 10.9 L Hct 30.8 L MCV 90 MCH 31.7 MCHC 35.4 RDW Std Deviation 41.0 Plt Count 190 D Neut % (Auto) 80 Lymph % (Auto) 7 L [place] % (Auto) 11 Eos % (Auto) 1 Baso % (Auto) 0 Neut # (Auto) 6.9 Lymph # (Auto) 0.6 L [place] # (Auto) 1.0 H Eos # (Auto) 0.1 Baso # (Auto) 0.0 Immature Gran # (Auto) 0.08 H Absolute Nucleated RBC 0.00 Immature Gran % 1 H Nucleated RBC % 0 Sodium 138 Potassium 3.2 L Chloride 104 Carbon Dioxide 23.9 Anion Gap 10 BUN 10 Creatinine 1.0 Estim Creat Clear Calc 70.3 eGFR > 60 BUN/Creatinine Ratio 10 L Glucose 92 Calculated Osmolality 274 L Calcium 8.5 Corrected Calcium 9.1 Phosphorus 3.8 Magnesium 1.8 Total Bilirubin 2.1 H D Direct Bilirubin 1.3 H AST 59 H ALT 53 H Alkaline Phosphatase 412 H D Total Protein 5.4 L Albumin 3.3 L Globulin 2.1 L Albumin/Globulin Ratio 1.6 Impressions Impression: # Status post open cholecystectomy for a very inflamed gallbladder Continue postoperative care Assessment & Plan A&P Narrative # Acute cholecystitis acalculous versus calculus which is difficult to assess on the imaging studies Ultrasound done in March of this year showed cholelithiasis Patient also has cholestasis leading to abnormal liver function tests No evidence of CBD stone Plan Continue IV antibiotics Case discussed with the surgical coordinator Laparoscopic versus open cholecystectomy in the morning Complete workup ordered for the remote possibility of chronic active hepatitis Thank you once again for the opportunity to participate in the care of this patient Time Spent With Patient Time: Total time spent is greater than 50% in coordination of care (as documented) at patient's floor/unit and/or counseling patient:
[2024-06-21] VITALS: BP 147/98; PULSE 75; RESP 18; TEMP 36.4; O2SAT 96
[2024-06-21 04:00] VITALS: BP 138/99; PULSE 74; RESP 18; TEMP 36.2; O2SAT 98
[2024-06-21 05:34] LABS: Basophils % (Auto) 0 % (0-2.5); Eosinophils # (Auto) 0.6 Thou/mm3 (0.0-0.5); Eosinophils % (Auto) 8 % (0-10); Hematocrit 26.6 % (41.0-53.0); Immature Granulocytes % (Auto) 3 % (0-0); Immature Granulocytes Auto 0.25 Thou/mm3 (0.00-0.00); Lymphocytes % (Auto) 14 % (10-50); Mean Corpuscular HGB Conc 33.8 g/dl (31.0-37.0); Mean Corpuscular Hemoglobin 30.9 pg (25.0-35.0); Mean Corpuscular Volume 91 fL (80-100); Monocytes # (Auto) 0.8 Thou/mm3 (0.0-0.8); Monocytes % (Auto) 11 % (0-12); Neutrophils # (Auto) 4.7 Thou/mm3 (1.8-7.7); Neutrophils % (Auto) 64 % (37-80); Nucleated Red Blood Cell % 0 /100 WBC (0); Platelet Count 207 Thou/mm3 (140-440); RDW Standard Deviation 43.1 fL (35.1-43.9); Red Blood Count 2.91 Miln/mm3 (4.50-5.90); White Blood Count 7.4 Thou/mm3 (3.8-10.6)
[2024-06-21] MEDS: KETOROLAC INJ 30 MG/ML VIAL IVP ×2 (05:39→12:08)
[2024-06-21] MEDS: PIPER/TAZO INJ 3.375 GM in SODIUM CHLORIDE 0.9% (P) 50 ML IV (05:40)
[2024-06-21 06:22] LABS: Alanine Aminotransferase 46 U/L (10-49); Albumin/Globulin Ratio 1.6 (1.2-2.2); Alkaline Phosphatase 318 U/L (46-116); Anion Gap 5 (7-16); Aspartate Amino Transferase 30 U/L (0-34); BUN/Creatinine Ratio 9 Ratio (12-20); Bilirubin,Direct 0.9 mg/dL (0.0-0.3); Bilirubin,Total 1.3 mg/dL (0.3-1.2); Blood Urea Nitrogen 7 mg/dL (9-23); Calcium 8.1 mg/dL (8.3-10.6); Calcium (Corrected) 8.9 mg/dL (8.5-10.1); Carbon Dioxide 25.7 mMol/L (20.0-31.0); Chloride 104 mMol/L (98-107); Creatinine (Component) 0.8 mg/dL (0.6-1.3); Estimated Creatinine Clearance 87.9 mL/min (>60); Globulin 1.9 gm/dL (2.3-3.5); Glucose 104 mg/dL (74-106); Magnesium 1.9 mg/dL (1.6-2.6); Osmolality,Calculated 268 (275-295); Phosphorous 3.1 mg/dL (2.4-5.1); Potassium 3.3 mMol/L (3.4-5.1); Sodium 135 mMol/L (136-145); Total Protein 4.9 gm/dL (5.7-8.2); eGFR > 60 See Note
[2024-06-21 08:00] VITALS: BP 139/73; PULSE 58; RESP 17; TEMP 36.1; O2SAT 99
[2024-06-21] MEDS: PANTOPRAZOLE INJ 40 MG VIAL IV (09:03)
[2024-06-21] MEDS: Hydrocortisone Cr 1% 30 GM TUBE TOP (10:26)
--- NOTE | 2024-06-21 11:36 | PD.SURPROG ---
Documentation for date of: 06/21/24 Subjective Subjective Brief History: History of present illness revealed that the patient was in his usual health until last Sunday when he noticed pain in the epigastric region radiating to the back. The pain persisted and he is not able to eat for the past week. He also was not able to sleep very well. The pain increased yesterday and came to the emergency room. He noticed that he also had jaundice and dark urine. Patient had a sudden episode of epigastric pain in March and then went to [facility] and had a cardiac workup which was negative. Then again patient had another episode of epigastric pain in May 09. That also resolved. Patient is not able to eat anything at the present time because of the pain. Patient is possibly history revealed that he had extensive history. He had a right inguinal hernia repair rotator cuff on the left shoulder and her multiple dilatation of the esophagus for stricture by Dr. Ramirez. He also had a history of benign prostatic hyperplasia for which he underwent surgery by kurtis. Patient also had a laparoscopic appendectomy performed by me in 2012 patient had a colonoscopy in 2016 due to blood in the stools. He has a history of his of eosinophilic esophagitis he had a TURP done in [address] Mauricio he also underwent hemorrhoidectomy by Dr. Hughes and multiple esophageal dilatation by Dr. Vuong Narrative: Patient is feeling better and has had a bowel movement Exam Vital Signs Temp Pulse Resp BP Pulse Ox O2 Del Method O2 Flow Rate 97.0 F 58 L 17 139/73 H 99 Room Air 2 06/21/24 08:00 06/21/24 08:00 06/21/24 08:00 06/21/24 08:00 06/21/24 08:00 06/21/24 08:00 06/20/24 15:38 His vital signs are normal Routine Abdominal Exam Comments: Abdominal examination showed mild distention and hypoactive bowel sounds but is eager to eat regular diet. There is no drain in the [place]. Results Results: Laboratory Laboratory Narrative: Lab results are within normal limits other than potassium which was 3.3 Assessment & Plan Assessment Additional comments: Impression: Satisfactory recovery after open cholecystectomy Plan Plan: We shall discharge him today with Augmentin for 5 days I will take the drain out as an outpatient in 3 days Has Vicodin for pain Procedures Procedures Open cholecystectomy
[2024-06-21 11:44] VITALS: BMI 26.7
[2024-06-21 11:45] VITALS: PULSE 63; RESP 18; RESP 98
[2024-06-21] MEDS: POTASSIUM CHLORIDE 20 mEq TABCR 40 MEQ PO (12:08)
--- NOTE | 2024-06-21 14:07 | ESPR_ITS ---
Documentation for date of: 06/21/24 Subjective Subjective Interval history: Clinically improving Okay to discharge the patient home to be followed as an outpatient Exam Vital Signs Temp Pulse Resp BP Pulse Ox O2 Del Method O2 Flow Rate 97.0 F 63 18 139/73 H 99 Room Air 2 06/21/24 08:00 06/21/24 11:45 06/21/24 11:45 06/21/24 08:00 06/21/24 08:00 06/21/24 08:00 06/20/24 15:38 Objective Labs 06/21/24 04:18 06/21/24 04:18 Labs: Laboratory Results - last 24 hr 06/21/24 04:18 WBC 7.4 RBC 2.91 L Hgb 9.0 L Hct 26.6 L MCV 91 MCH 30.9 MCHC 33.8 RDW Std Deviation 43.1 Plt Count 207 Neut % (Auto) 64 Lymph % (Auto) 14 [place] % (Auto) 11 Eos % (Auto) 8 Baso % (Auto) 0 Neut # (Auto) 4.7 Lymph # (Auto) 1.0 [place] # (Auto) 0.8 Eos # (Auto) 0.6 H Baso # (Auto) 0.0 Immature Gran # (Auto) 0.25 H Absolute Nucleated RBC 0.00 Immature Gran % 3 H Nucleated RBC % 0 Sodium 135 L Potassium 3.3 L Chloride 104 Carbon Dioxide 25.7 Anion Gap 5 L BUN 7 L Creatinine 0.8 Estim Creat Clear Calc 87.9 eGFR > 60 BUN/Creatinine Ratio 9 L Glucose 104 Calculated Osmolality 268 L Calcium 8.1 L Corrected Calcium 8.9 Phosphorus 3.1 Magnesium 1.9 Total Bilirubin 1.3 H D Direct Bilirubin 0.9 H AST 30 ALT 46 Alkaline Phosphatase 318 H D Total Protein 4.9 L Albumin 3.0 L Globulin 1.9 L Albumin/Globulin Ratio 1.6 Impressions Impression: # Acute cholecystitis due to cholelithiasis # Pain abdomen secondary to 1 okay to discharge patient home to be followed as an outpatient Assessment & Plan A&P Narrative # Acute cholecystitis acalculous versus calculus which is difficult to assess on the imaging studies Ultrasound done in March of this year showed cholelithiasis Patient also has cholestasis leading to abnormal liver function tests No evidence of CBD stone Plan Continue IV antibiotics Case discussed with the surgical garment assembler Laparoscopic versus open cholecystectomy in the morning Complete workup ordered for the remote possibility of chronic active hepatitis Thank you once again for the opportunity to participate in the care of this patient Time Spent With Patient Time: Total time spent is greater than 50% in coordination of care (as documented) at patient's floor/unit and/or counseling patient:
--- NOTE | 2024-06-21 14:51 | ESDS_ITS ---
<Statement entered by Trip Luna MD - 06/22/24 12:15> I have discussed and was present for the essential components of the history, physical examination, diagnosis, and treatment plan with the resident. I agree with the patient's care as documented by the resident and amended herein by me. Trip Luna MD. Planned Discharge Date 06/21/24 DS: Providers Provider Date of admission: 06/18/24 10:54 Primary care physician: Martina Shaver MD Admitting Provider: Wei Mackay MD Attending Provider on Admission: Trip Luna MD Consults: 06/18/24 09:43 Consult to Gastroenterology Stat Comment: Consulting Provider: Una Vuong Consult to General Surgery Stat Comment: Consulting Provider: Karen Yanez 06/18/24 15:55 Consult to Cardiology Routine Comment: Chest pain Consulting Provider: Herman Ramos 06/18/24 16:29 [facility] Referral - Knowledge Deficit Routine Comment: Positive screening for knowledge deficit needs. Attending Provider on DC: Trip Luna MD Discharging Provider: Trip Luna MD DS: Diagnosis Problem List Completed Was Problem List Reviewed/Reconciled?: Yes Hospital Course Hospital Course Hospital course: This patient is a 64-year-old male with a past medical history significant for eosinophilic esophagitis and hyperlipidemia. Patient follows up with PCP Dr. Martina Shaver, computer engineering technologist Dr. Ramos and sales support associate Dr. Vuong. Patient presented with epigastric pain worse postprandial described as stabbing and burning. Of note, patient had an admission previously in March for similar presentation. Labs were significant for elevated transaminases with elevated T. bili. EKG showed sinus rhythm. Imaging confirmed acute acalculous cholecystitis. MRCP did not show CBD stones. Surgeon was consulted and patient underwent ex lap for removal of gallbladder and PADMINI drain was placed. Patient had a bowel movement postprocedure today. Surgeon recommended to discharge the patient on Augmentin, Vicodin and he will remove the PADMINI drain after 3 days. GI specialist was consulted during hospitalization due to elevated transaminases and T. bili. Patient needs to follow-up with ceruloplasmin, YON, antimitochondrial antibody ordered by Dr. Vuong, sales support associate. Patient was advised to follow-up with lab investigations with GI specialist. Patient was seen and examined at the bedside. He was medically stable to be discharged. He is discharged to home. He was advised to follow-up with his PCP as outpatient, follow-up with GI specialist and follow-up with general surgeon within a week. # Problem list: # Acute acalculous cholecystitis s/p open cholecystectomy 06/19 with PADMINI drain # Metabolic dysfunction associated steatohepatitis # Hyperbilirubinemia # Elevated transaminases # Hyperlipidemia # Eosinophilic esophagitis # Esophageal stenosis/stricture post dilation # Headache resolved DC instructions: Take all home medication as prescribed Take Augmentin 1 tablet twice daily for 5 more days Take [place] 1 tablet 2 times a day as needed for pain Follow-up with PCP as outpatient within 2 weeks Follow-up with general surgeon, Dr. Sparrow as outpatient within a week Follow-up with GI specialist, Dr. Vuong as outpatient within a week Patient was seen and discussed with attending physician, Dr. Jeremy Waldrop MD, PGY 2 Time Spent with Patient Time attestation: Total time spent providing and/or coordinating discharge services: Exam Vital Signs Temp Pulse Resp BP Pulse Ox O2 Del Method O2 Flow Rate 97.0 F 63 18 139/73 H 99 Room Air 2 06/21/24 08:00 06/21/24 11:45 06/21/24 11:45 06/21/24 08:00 06/21/24 08:00 06/21/24 08:00 06/20/24 15:38 Narrative Exam Constitutional Alert, oriented x 3 and comfortable. Elderly male, Icteric - improving HEENT Vision grossly intact. Patent nares. Trachea midline Respiratory Chest normal on inspection and decreased air entry at bases with atelectasis. Cardiovascular S1 and S2 audible, RRR. No murmurs, carotid bruit, occasional skipped beats. JVD not assessed Abdominal SOft and tender to palpation at surgical sites. BS +. RUQ bandage noted, umbilical bandage noted, PADMINI drain in place Genitourinary No bladder tenderness, no flank pain. Normal to palpation Musculoskeletal Extremities tone within normal limits. No LE edema. Neurological CN II - XII grossly intact. Extremity motor and sensation grossly intact. Skin Warm, dry and intact. No apparent lesions. Psychiatric Patient has good affect, is cooperative Discharge Plan Plan Patient Disposition: HOME (Self Care) Patient condition on transfer: Stable Care Plan Goals: Take all home medication as prescribed Take Augmentin 1 tablet twice daily for 5 more days Follow-up with PCP as outpatient within 2 weeks Follow-up with general surgeon, Dr. Sparrow as outpatient within a week Follow-up with GI specialist, Dr. Vuong as outpatient within a week Prescriptions/Referrals Prescriptions/Med Rec: New amoxicillin-pot clavulanate 875-125 mg tablet 1 tab PO Q12H Qty: 10 0RF hydrocodone-acetaminophen 5-325 mg tablet 1 tab PO BID MDD 2 PRN (Reason: pain) 3 Days Qty: 7 0RF No Action pantoprazole 40 mg tablet,delayed release (DR/EC) 40 mg PO QDAY Patient Comments: TAKE 1 TABLET BY MOUTH EVERY DAY montelukast 10 mg tablet 10 mg PO QDAY Patient Comments: TAKE 1 TABLET BY MOUTH EVERY DAY IN THE EVENING ezetimibe 10 mg tablet 10 mg PO QDAY Patient Comments: TAKE 1 TABLET BY MOUTH EVERY DAY FOR 90 DAYS Referrals: Martina Shaver MD [Primary Care Provider] - Patient/Caregiver Discharge Instructions Education Materials: Preventing Surgical Site Infections Print Language: Panamanian Activity Restrictions/Additional Instructions: Diet as tolerated May shower with the PADMINI drain in place Empty PADMINI drain 2 or 3 times a day and record Activities as tolerated Take Vicodin for pain as prescribed. Follow-up in my office on next June 24. Call 7 for an appointment time. Stand Alone Forms: [employer] Award Info., Patient Portal Info Letter Discharge Order Discharge Orders: Discharge (Routine); Ordered 06/21/24 Ordered By: Karen Yanez Quality Discharge Quality Measures VTE prophylaxis
--- NOTE | 2024-06-23 10:36 | CHAP ---
Addendum entered by Tung Dickerson 06/23/24 10:37: [I inadvertently put Sunday's date. Patient was visited on 06/20/24] at 11:00 Original Note: Patient was visited by the Spiritual Care Volunteer who prayed silently for them due to patient being asleep. (Volunteer was in the hospital from [facility]. 10:00-11:00)
[2024-06-30 06:48] LABS: ANA Screen, IFA NEGATIVE (NEGATIVE); Alpha-1-Antitrypsin* 299 mg/dL (83-199); Ceruloplasmin* 33 mg/dL (14-30); Copper* 152 mcg/dL (70-175); Mitochondrial Ab NEGATIVE (NEGATIVE)
== END 2024-06-21 13:40 | disposition home or self-care (01) | DRG 416 ==
LOC: SERX 06-18 14:50 → SERHOLD 06-18 15:04 → S3NX 06-18 15:14
PROVIDERS: Nurse Practitioner Primary Care; Specialist; Student in an Organized Health Care Education/Training Program; Surgery; Admitting Provider Student in an Organized Health Care Education/Training Program; Emergency Provider Emergency Medicine; PCP Family Medicine; Visit Provider Internal Medicine
PROC: 0FT44ZZ Resection of Gallbladder, Percutaneous Endoscopic Approach (ICD-10-PCS; CPT 47562; principal; 2024-06-19 10:30)
DX: K80.01 Calculus of gallbladder with acute cholecystitis with obstruction (principal); E78.00 Pure hypercholesterolemia, unspecified; Z88.8 Allergy status to other drugs, medicaments and biological substances; K20.0 Eosinophilic esophagitis; L29.9 Pruritus, unspecified; K75.81 Nonalcoholic steatohepatitis (NASH); N40.0 Benign prostatic hyperplasia without lower urinary tract symptoms; K21.9 Gastro-esophageal reflux disease without esophagitis; R51.9 Headache, unspecified
CPT/HCPCS: 36415; 74177; 76705; 80053; 80061; 80074; 80076; 81001; 82103; 82248; 82390; 82525; 83540; 83550; 83690; 83735; 84100; 84484; 85025; 85610; 85730; 86038; 86255; 87040; 87400; 87811; 93005; 94664; 96361; 96365; 96367; 96375; 96376; 99285; A4217; A4649; J0131; J0360; J0696; J1885; J2250; J2270; J2405; J2470; J2543; J2704; J2765; J3010; J3475; J3490; J7030; J7050; Q9967; S8037; 74181; A9270

== ENCOUNTER → 2024-07-04 | Outpatient (CLI) | payer MEDICARE, BC, SELFPAY ==
[2024-07-04 08:30] LABS: Basophils # (Auto) 0.1 Thou/mm3 (0.0-0.2); Basophils % (Auto) 2 % (0-2.5); Eosinophils # (Auto) 0.3 Thou/mm3 (0.0-0.5); Eosinophils % (Auto) 8 % (0-10); Hematocrit 41.8 % (41.0-53.0); Hemoglobin 14.2 g/dL (13.5-16.0); Immature Granulocytes % (Auto) 0 % (0-0); Immature Granulocytes Auto 0.01 Thou/mm3 (0.00-0.00); Lymphocytes # (Auto) 1.2 Thou/mm3 (1.0-4.8); Lymphocytes % (Auto) 28 % (10-50); Mean Corpuscular Hemoglobin 30.1 pg (25.0-35.0); Mean Corpuscular Volume 89 fL (80-100); Monocytes # (Auto) 0.4 Thou/mm3 (0.0-0.8); Monocytes % (Auto) 9 % (0-12); Neutrophils # (Auto) 2.2 Thou/mm3 (1.8-7.7); Neutrophils % (Auto) 53 % (37-80); Nucleated Red Blood Cell % 0 /100 WBC (0); Platelet Count 464 Thou/mm3 (140-440); RDW Standard Deviation 39.6 fL (35.1-43.9); Red Blood Count 4.72 Miln/mm3 (4.50-5.90); White Blood Count 4.2 Thou/mm3 (3.8-10.6)
[2024-07-04 08:46] LABS: Alanine Aminotransferase 30 U/L (10-49); Albumin, Serum 4.7 gm/dL (3.4-4.8); Albumin/Globulin Ratio 1.9 (1.2-2.2); Alkaline Phosphatase 196 U/L (46-116); Anion Gap 9 (7-16); Aspartate Amino Transferase 24 U/L (0-34); BUN/Creatinine Ratio 11 Ratio (12-20); Blood Urea Nitrogen 12 mg/dL (9-23); Calcium 10.5 mg/dL (8.3-10.6); Calcium (Corrected) 10.5 mg/dL (8.5-10.1); Carbon Dioxide 28.3 mMol/L (20.0-31.0); Cardiac Risk Estimate 4.3 RATIO (4.0-6.7); Chloride 101 mMol/L (98-107); Cholesterol 180 mg/dL (132-200); Creatinine (Component) 1.1 mg/dL (0.6-1.3); Globulin 2.5 gm/dL (2.3-3.5); Glucose 97 mg/dL (74-106); HDL Cholesterol 42 mg/dL (40-60); LDL Cholesterol,Calculated 106 mg/dL (0-130); Osmolality,Calculated 275 (275-295); Potassium 4.5 mMol/L (3.4-5.1); Sodium 138 mMol/L (136-145); Total Protein 7.2 gm/dL (5.7-8.2); Triglycerides 162 mg/dL (30-150); eGFR > 60 See Note
== END | disposition home or self-care (01) ==
LOC: COPL 06:46
PROVIDERS: PCP Family Medicine; Referring Provider Family Medicine; Visit Provider Specialist
DX: E78.2 Mixed hyperlipidemia (principal); K92.1 Melena; K20.80 Other esophagitis without bleeding; R10.10 Upper abdominal pain, unspecified
CPT/HCPCS: 36415; 80053; 80061; 85025

== ENCOUNTER → 2024-10-27 | Outpatient (CLI) | payer MEDICARE, BC, SELFPAY ==
--- NOTE | 2024-10-27 | XR_ITS ---
Examination: Foot, right, 3 views Technique: AP, oblique, lateral views foot, 3 views Date and time of exam: October 27, 2024 1240 hours INDICATIONS: Right foot pain beginning 9 months ago. FINDINGS: Moderate bunion deformity. Moderate osteoarthritis first metatarsophalangeal joint. No acute fracture 3 mm plantar bony calcaneal spur IMPRESSION: Moderate bunion deformity Moderate osteoarthritis first metatarsophalangeal joint
== END | disposition home or self-care (01) ==
PROVIDERS: PCP Family Medicine; Referring Provider Student in an Organized Health Care Education/Training Program; Visit Provider Student in an Organized Health Care Education/Training Program
DX: M21.611 Bunion of right foot (principal); M19.071 Primary osteoarthritis, right ankle and foot
CPT/HCPCS: 73630

== ENCOUNTER → 2024-12-26 | Outpatient (CLI) | payer MEDICARE, BC, SELFPAY ==
[2024-12-26 08:30] LABS: Basophils % (Auto) 1 % (0-2.5); Eosinophils # (Auto) 0.2 Thou/mm3 (0.0-0.5); Eosinophils % (Auto) 5 % (0-10); Hematocrit 43.8 % (41.0-53.0); Immature Granulocytes % (Auto) 0 % (0-0); Immature Granulocytes Auto 0.01 Thou/mm3 (0.00-0.00); Lymphocytes # (Auto) 1.2 Thou/mm3 (1.0-4.8); Lymphocytes % (Auto) 29 % (10-50); Mean Corpuscular HGB Conc 36.5 g/dl (31.0-37.0); Mean Corpuscular Hemoglobin 32.1 pg (25.0-35.0); Mean Corpuscular Volume 88 fL (80-100); Monocytes # (Auto) 0.4 Thou/mm3 (0.0-0.8); Monocytes % (Auto) 9 % (0-12); Neutrophils # (Auto) 2.4 Thou/mm3 (1.8-7.7); Neutrophils % (Auto) 57 % (37-80); Nucleated Red Blood Cell % 0 /100 WBC (0); Platelet Count 186 Thou/mm3 (140-440); RDW Standard Deviation 39.2 fL (35.1-43.9); Red Blood Count 4.98 Miln/mm3 (4.50-5.90); White Blood Count 4.2 Thou/mm3 (3.8-10.6)
[2024-12-26 08:39] LABS: Prostate Specific Antigen 2.39 ng/mL (0-4.00)
[2024-12-26 08:51] LABS: Alanine Aminotransferase 25 U/L (10-49); Albumin, Serum 4.4 gm/dL (3.4-4.8); Albumin/Globulin Ratio 1.9 (1.2-2.2); Alkaline Phosphatase 70 U/L (46-116); Anion Gap 9 (7-16); Aspartate Amino Transferase 31 U/L (0-34); BUN/Creatinine Ratio 15 Ratio (12-20); Blood Urea Nitrogen 16 mg/dL (9-23); Calcium 9.5 mg/dL (8.3-10.6); Calcium (Corrected) 9.5 mg/dL (8.5-10.1); Carbon Dioxide 28.1 mMol/L (20.0-31.0); Chloride 108 mMol/L (98-107); Cholesterol 172 mg/dL (132-200); Creatinine (Component) 1.1 mg/dL (0.6-1.3); Globulin 2.3 gm/dL (2.3-3.5); Glucose 107 mg/dL (74-106); HDL Cholesterol 58 mg/dL (40-60); LDL Cholesterol,Calculated 87 mg/dL (0-130); Osmolality,Calculated 289 (275-295); Sodium 145 mMol/L (136-145); Total Protein 6.7 gm/dL (5.7-8.2); Triglycerides 137 mg/dL (30-150); eGFR > 60 See Note
== END | disposition home or self-care (01) ==
PROVIDERS: PCP Family Medicine; Referring Provider Family Medicine; Visit Provider Family Medicine
DX: E78.2 Mixed hyperlipidemia (principal); N40.1 Benign prostatic hyperplasia with lower urinary tract symptoms
CPT/HCPCS: 36415; 80053; 80061; 84153; 85025

== ENCOUNTER → 2025-01-13 | Outpatient (CLI) | payer MEDICARE, BC, SELFPAY ==
[2025-01-13 08:15] LABS: Basophils # (Auto) 0.0 Thou/mm3 (0.0-0.2); Basophils % (Auto) 1 % (0-2.5); Eosinophils # (Auto) 0.1 Thou/mm3 (0.0-0.5); Eosinophils % (Auto) 3 % (0-10); Hematocrit 46.1 % (41.0-53.0); Hemoglobin 16.4 g/dL (13.5-16.0); Immature Granulocytes Auto 0.01 Thou/mm3 (0.00-0.00); Lymphocytes # (Auto) 1.4 Thou/mm3 (1.0-4.8); Lymphocytes % (Auto) 36 % (10-50); Mean Corpuscular HGB Conc 35.6 g/dl (31.0-37.0); Mean Corpuscular Hemoglobin 32.3 pg (25.0-35.0); Mean Corpuscular Volume 91 fL (80-100); Monocytes # (Auto) 0.3 Thou/mm3 (0.0-0.8); Monocytes % (Auto) 8 % (0-12); Neutrophils # (Auto) 2.1 Thou/mm3 (1.8-7.7); Neutrophils % (Auto) 53 % (37-80); Nucleated Red Blood Cell # 0.00 Thou/mm3 (0.00-0.00); Nucleated Red Blood Cell % 0 /100 WBC (0); Platelet Count 195 Thou/mm3 (140-440); RDW Standard Deviation 39.3 fL (35.1-43.9); Red Blood Count 5.07 Miln/mm3 (4.50-5.90); White Blood Count 3.9 Thou/mm3 (3.8-10.6)
[2025-01-13 08:23] LABS: Alanine Aminotransferase 27 U/L (10-49); Albumin, Serum 4.3 gm/dL (3.4-4.8); Albumin/Globulin Ratio 1.7 (1.2-2.2); Alkaline Phosphatase 78 U/L (46-116); Anion Gap 4 (7-16); Aspartate Amino Transferase 27 U/L (0-34); BUN/Creatinine Ratio 11 Ratio (12-20); Bilirubin,Total 1.1 mg/dL (0.3-1.2); Blood Urea Nitrogen 13 mg/dL (9-23); Calcium 9.7 mg/dL (8.3-10.6); Calcium (Corrected) 9.7 mg/dL (8.5-10.1); Carbon Dioxide 29.1 mMol/L (20.0-31.0); Chloride 107 mMol/L (98-107); Creatinine (Component) 1.2 mg/dL (0.6-1.3); Globulin 2.5 gm/dL (2.3-3.5); Glucose 97 mg/dL (74-106); Osmolality,Calculated 279 (275-295); Potassium 4.3 mMol/L (3.4-5.1); Sodium 140 mMol/L (136-145); Total Protein 6.8 gm/dL (5.7-8.2); eGFR > 60 See Note
== END | disposition home or self-care (01) ==
LOC: COPL 06:44
PROVIDERS: PCP Family Medicine; Referring Provider Student in an Organized Health Care Education/Training Program; Visit Provider Student in an Organized Health Care Education/Training Program
DX: Z01.818 Encounter for other preprocedural examination (principal); M20.11 Hallux valgus (acquired), right foot
CPT/HCPCS: 36415; 80053; 85025

== ENCOUNTER → 2025-07-02 | Outpatient (CLI) | payer MEDICARE, BC, SELFPAY ==
[2025-07-02 08:32] LABS: Basophils # (Auto) 0.0 Thou/mm3 (0.0-0.2); Basophils % (Auto) 1 % (0-2.5); Eosinophils # (Auto) 0.1 Thou/mm3 (0.0-0.5); Eosinophils % (Auto) 2 % (0-10); Hematocrit 45.3 % (41.0-53.0); Hemoglobin 15.8 g/dL (13.5-16.0); Immature Granulocytes Auto 0.01 Thou/mm3 (0.00-0.00); Lymphocytes # (Auto) 1.3 Thou/mm3 (1.0-4.8); Lymphocytes % (Auto) 27 % (10-50); Mean Corpuscular HGB Conc 34.9 g/dl (31.0-37.0); Mean Corpuscular Hemoglobin 31.7 pg (25.0-35.0); Mean Corpuscular Volume 91 fL (80-100); Monocytes # (Auto) 0.5 Thou/mm3 (0.0-0.8); Monocytes % (Auto) 10 % (0-12); Neutrophils # (Auto) 3.0 Thou/mm3 (1.8-7.7); Neutrophils % (Auto) 61 % (37-80); Nucleated Red Blood Cell # 0.00 Thou/mm3 (0.00-0.00); Nucleated Red Blood Cell % 0 /100 WBC (0); Platelet Count 207 Thou/mm3 (140-440); RDW Standard Deviation 39.5 fL (35.1-43.9); Red Blood Count 4.98 Miln/mm3 (4.50-5.90); White Blood Count 5.0 Thou/mm3 (3.8-10.6)
[2025-07-02 08:50] LABS: Alanine Aminotransferase 39 U/L (10-49); Albumin, Serum 4.5 gm/dL (3.4-4.8); Albumin/Globulin Ratio 1.7 (1.2-2.2); Alkaline Phosphatase 78 U/L (46-116); Anion Gap 10 (7-16); Aspartate Amino Transferase 33 U/L (0-34); BUN/Creatinine Ratio 11 Ratio (12-20); Bilirubin,Total 0.5 mg/dL (0.3-1.2); Blood Urea Nitrogen 11 mg/dL (9-23); Calcium 9.5 mg/dL (8.3-10.6); Calcium (Corrected) 9.5 mg/dL (8.5-10.1); Carbon Dioxide 29.0 mMol/L (20.0-31.0); Cardiac Risk Estimate 3.2 RATIO (4.0-6.7); Chloride 105 mMol/L (98-107); Cholesterol 201 mg/dL (132-200); Creatinine (Component) 1.0 mg/dL (0.6-1.3); Globulin 2.7 gm/dL (2.3-3.5); Glucose 95 mg/dL (74-106); HDL Cholesterol 63 mg/dL (40-60); LDL Cholesterol,Calculated 106 mg/dL (0-130); Osmolality,Calculated 286 (275-295); Potassium 4.1 mMol/L (3.4-5.1); Sodium 144 mMol/L (136-145); Thyroid Stimulating Hormone 1.97 uIU/mL (0.55-4.78); Total Protein 7.2 gm/dL (5.7-8.2); Triglycerides 161 mg/dL (30-150); eGFR > 60 See Note
[2025-07-13 07:05] LABS: Testosterone, Free,Dialysis 55.7 pg/mL (35.0-155.0); Testosterone, Total, Dialysis 341 ng/dL (250-1100)
== END | disposition home or self-care (01) ==
LOC: COPL 07:04
PROVIDERS: PCP Family Medicine; Referring Provider Family Medicine; Visit Provider Family Medicine
DX: E78.2 Mixed hyperlipidemia (principal); F52.21 Male erectile disorder
CPT/HCPCS: 36415; 80053; 80061; 84402; 84403; 84443; 85025